=== PATIENT | female | born 1955 | race Caucasian/White ===

== ENCOUNTER → 2019-09-07 11:00 | Outpatient (BNVA) | payer MEDICARE, MEDICAID, SELFPAY | PROVIDERS: Family Provider Nurse Practitioner Family; Visit Provider Registered Nurse | DX: F33.1 Major depressive disorder, recurrent, moderate (principal); F43.12 Post-traumatic stress disorder, chronic; G47.30 Sleep apnea, unspecified; Z79.899 Other long term (current) drug therapy | CPT/HCPCS: 80061; 83036 ==

== ENCOUNTER → 2020-02-28 11:14 | Outpatient (BNVA) | payer MEDICARE, MEDICAID, SELFPAY ==
[2019-09-09 10:12] VITALS: BP 164/93; BMI 25.3
== END ==
PROVIDERS: Family Provider Nurse Practitioner Family; PCP Family Medicine; Visit Provider Family Medicine
DX: E87.6 Hypokalemia (principal); I10 Essential (primary) hypertension; I16.0 Hypertensive urgency; R41.3 Other amnesia; R56.1 Post traumatic seizures; Z79.899 Other long term (current) drug therapy
CPT/HCPCS: 80048; 80061; 83036

== ENCOUNTER 2020-03-11 15:21 | Emergency (ER) | payer MEDICARE, MEDICAID, SELFPAY ==
[2019-09-09 10:12] VITALS: BP 164/93; BMI 25.3
[2020-03-11 15:27] VITALS: BP 121/81; PULSE 87; RESP 14; TEMP 36.6; O2SAT 95; BMI 26.5
--- NOTE | 2020-03-11 15:39 | ED_ITS ---
HPI - Fall General: Chief Complaint: Fall Stated Complaint: FELL AND HIT HEAD Time Seen by Provider: 03/11/20 15:36 Source: patient Mode of arrival: ambulatory Limitations: no limitations History of Present Illness: HPI Narrative: Patient is a 65-year-old female who presents to ED today for evaluation of a head injury. Patient tells me earlier this morning she tripped over my own two feet and struck her head. No LOC. She states she has a headache. No visual changes, vomiting, or trouble walking. She has no other complaints at this time. Place fall occurred: home Loss of consciousness: None Prolonged down time: no Symptoms prior to fall: none Context: tripped/slipped Associated symptoms-after fall: Reports headache(s); Denies abdominal pain, chest pain, confusion or neck pain Review of Systems Const: Denies: fever(s) or chills Eyes: Denies: change in vision, blurry vision, photophobia, floaters or seeing flashes Card: Denies: chest pain Resp: Denies: dyspnea GI: Denies: abdominal pain, nausea or vomiting Musc: Denies: neck pain, back pain, extremity pain or joint pain Neuro: Reports: headache(s); Denies: numbness in extremities, weakness in extremities, sensory changes, dizziness or confusion PFSH ED PFSH: Medical History Apnea, sleep Chronic post-traumatic stress disorder GERD (gastroesophageal reflux disease) Hyperlipidemia Hypertension Hypokalemia Major depressive disorder, recurrent, moderate Osteoarthritis Family History Father Hypertension Social History Smoking and tobacco status: former smoker Second hand smoke exposure: No Alcohol intake: current Alcohol intake frequency: 3 or more drinks per day Desire information about alcohol rehabilitation?: No Current gender identity: Female Female Reproductive History: Spontaneous abortions: No Physical Exam Const: COMMON NORMALS: no acute distress, average body habitus, patient oriented x3, no limitations, healthy appearing, alert and well nourished ORIENTATION/CONSCIOUSNESS: Yes oriented to person, Yes oriented to place and Yes oriented to time HENMT: COMMON NORMALS: normocephalic and atraumatic HEAD & SCALP: normocephalic and atraumatic Eye: COMMON NORMALS: Equal, round and reactive pupils present and EOMs intact bilaterally GENERAL EYE: appearance normal, both eyes and all related structures PUPIL: Yes Equal, round and reactive pupils present Neck/C-Spine: COMMON NORMALS: full ROM CERVICAL SPINE: No Cervical spine tenderness Chest: COMMONS NORMALS: normal inspection of the chest and normal palpation of entire chest wall Resp: COMMON NORMALS: normal respiratory effort and clear to auscultation bilaterally AUSCULTATION: clear to auscultation bilaterally Cardio: COMMON NORMALS: regular rate and regular rhythm RATE: regular rate RHYTHM: regular rhythm Back/Pelvis: COMMON NORMALS: thoracic and lumbar spine normal to inspection, no thoracic nor lumbar tenderness and thoraco-lumbar ROM normal Neuro: MASON COMA SCALE: document GCS findings Mason coma scale eye opening: Spontaneous [place] coma scale verbal response: Orientated [place] coma scale motor response: Obey commands [place] coma scale total score: 15 COMMON NORMALS: patient oriented x3, CN's II-XII intact bilaterally, moves all extremities, no focal motor deficits, no sensory deficits noted and gait normal SENSORIUM/ORIENTATION: Yes alert, Yes oriented to person, Yes oriented to place and Yes oriented to time Skin: COMMON NORMALS: no rashes or lesions noted GENERAL SKIN EXAM: no rashes or lesions noted Course Vital Signs: Vital signs: Vital Signs Temperature 97.9 F 03/11/20 15:27 Pulse Rate 87 03/11/20 15:27 Respiratory Rate 14 03/11/20 15:27 Blood Pressure 121/81 03/11/20 15:27 Pulse Oximetry 95 03/11/20 15:27 MDM - Fall Imaging Data^: CT Head: Radiologist's impression: [address] [address] [address] Scan Report Signed Patient: Kaitlynn Harris Unit #: [id number] : 1955 Age/Sex: 65 / F ADM Date: 03/11/20 Loc: ER Room/Bed: Attending Dr: Ordering Provider/Ordering MD: Joyce Waite Date of Service: 03/11/20 Procedure(s): CT head wo con* [id number] Accession Number(s): [id number] Report Number: [id number] PROCEDURE INFORMATION: Exam: CT Head Without Contrast Exam date and time: 03/11/2020 3:58 PM Age: 65 years old Clinical indication: Injury or trauma; Blunt trauma (contusions or hematomas); Without loss of consciousness; Prior surgery; Surgery date: 1-6 months; Surgery type: Chi-mauro hole; Patient HX: C/O EDMONDS after fall while walking denies loc - states multiple recent falls; Additional info: Fall/head injury TECHNIQUE: Imaging protocol: Computed tomography of the head without contrast. Radiation optimization: All CT scans at this facility use at least one of these dose optimization techniques: automated exposure control; mA and/or kV adjustment per patient size (includes targeted exams where dose is matched to clinical indication); or iterative reconstruction. COMPARISON: No relevant prior studies available. 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 Mild atrophy and mild white matter chronic microvascular changes are noted. No hemorrhage or CT evidence of acute infarction is seen. Mild dural thickening is observed in the anterolateral left frontal convexity near an a mauro hole. Cerebral ventricles: No ventriculomegaly. Bones/joints: No acute fracture. Paranasal sinuses: Visualized sinuses are unremarkable. No fluid levels. Mastoid air cells: Visualized mastoid air cells are well aerated. Soft tissues: Unremarkable. CT/CT head wo con* [id number] IMPRESSION: No acute intracranial abnormality. Radiation Dose CTDIVOL = (mGy): DLP = 856.33 (mGy-cm) Dictated By: Fahad Carter MD Signed By: Fahad Carter MD Signed Date/Time: 03/11/201621 DD/ 21 Discharge Plan Discharge Patient Disposition: Home Clinical Impression: Fall on same level from tripping Minor head injury without loss of consciousness Qualifiers: Encounter type: initial encounter Qualified Code(s): S09.90XA - Unspecified injury of head, initial encounter Condition: Stable Prescriptions: No Action vitamin B complex [B Complex-Vitamin B12] Tablet 1 tab PO DAILY RF: 0 fenofibrate nanocrystallized 145 mg tablet 145 mg PO DAILY RF: 0 calcium carb-D3-mag [id number] [id number] lk-uckm-fa-mg tablet 1 tab PO DAILY RF: 0 naproxen 500 mg tablet 500 mg PO BID RF: 0 potassium chloride 10 mEq capsule, extended release 10 meq PO TID 30 Days Qty: 90 RF: 2 fluvoxamine 100 mg tablet 100 mg PO .at bedtime RF: 0 amlodipine 10 mg tablet 10 mg PO QAM 30 Days Qty: 30 RF: 2 desvenlafaxine succinate [Pristiq] 100 mg tablet extended release 24 hr 100 mg PO DAILY Qty: 7 RF: 0 hydrochlorothiazide 25 mg tablet 25 mg PO DAILY 7 Days Qty: 7 RF: 0 lamotrigine [Lamictal ODT] 200 mg tablet,disintegrating 200 mg PO DAILY Qty: 7 RF: 0 lovastatin 10 mg tablet 10 mg PO DAILY Qty: 7 RF: 0 olmesartan 40 mg tablet 40 mg PO DAILY 7 Days Qty: 7 RF: 0 omeprazole 20 mg capsule,delayed release(DR/EC) 20 mg PO DAILY Qty: 7 RF: 0 risperidone [Risperdal] 2 mg tablet 2 mg PO .bedtime Qty: 7 RF: 0 Discharge Orders: Discharge ED (Routine); Ordered 03/11/20 Ordered By: Joyce Waite Referrals: Evelyne Harper MD [Primary Care Provider] - Patient Instructions: Minor Head Injury (ED) Coding Level of Care Code ED General Practitioner for Chg Fwd Exam Comprehensive
== END 2020-03-11 16:36 | disposition home or self-care (01) ==
PROVIDERS: Emergency Provider Physician Assistant; PCP Family Medicine
DX: S09.8XXA Other specified injuries of head, initial encounter (principal); E78.5 Hyperlipidemia, unspecified; I10 Essential (primary) hypertension; Z87.891 Personal history of nicotine dependence; W01.10XA Fall on same level from slipping, tripping and stumbling with subsequent striking against unspecified object, initial encounter
CPT/HCPCS: 12345; 70450; 99281; 99282

== ENCOUNTER → 2020-08-22 11:24 | Outpatient (BNVA) | payer MEDICARE, MEDICAID, SELFPAY ==
[2019-09-09 10:12] VITALS: BP 164/93; BMI 25.3
== END ==
PROVIDERS: PCP Family Medicine; Visit Provider Family Medicine
DX: I10 Essential (primary) hypertension (principal); E78.2 Mixed hyperlipidemia; K21.9 Gastro-esophageal reflux disease without esophagitis; E87.6 Hypokalemia; N18.9 Chronic kidney disease, unspecified; L03.113 Cellulitis of right upper limb; N18.2 Chronic kidney disease, stage 2 (mild)
CPT/HCPCS: 80053

== ENCOUNTER → 2020-08-31 10:13 | Outpatient (BNVA) | payer MEDICARE, MEDICAID, SELFPAY ==
[2019-09-09 10:12] VITALS: BP 164/93; BMI 25.3
== END ==
PROVIDERS: PCP Family Medicine; Visit Provider Family Medicine
DX: S50.01XA Contusion of right elbow, initial encounter (principal); X58.XXXA Exposure to other specified factors, initial encounter; M79.89 Other specified soft tissue disorders
CPT/HCPCS: 73080

== ENCOUNTER → 2020-10-25 10:10 | Outpatient (BNVA) | payer MEDICARE, MEDICAID, SELFPAY ==
[2019-09-09 10:12] VITALS: BP 164/93; BMI 25.3
== END ==
PROVIDERS: PCP Family Medicine; Visit Provider Family Medicine
DX: E87.1 Hypo-osmolality and hyponatremia (principal); N18.2 Chronic kidney disease, stage 2 (mild); Z22.322 Carrier or suspected carrier of Methicillin resistant Staphylococcus aureus
CPT/HCPCS: 80048

== ENCOUNTER → 2020-11-30 16:19 | Outpatient (BNVA) | payer MEDICARE, MEDICAID, SELFPAY ==
[2019-09-09 10:12] VITALS: BP 164/93; BMI 25.3
== END ==
PROVIDERS: PCP Family Medicine; Visit Provider Emergency Medicine
DX: Z20.822 Contact with and (suspected) exposure to COVID-19 (principal)
CPT/HCPCS: 87635

== ENCOUNTER → 2021-02-28 10:11 | Outpatient (BNVA) | payer MEDICARE, MEDICAID, SELFPAY ==
[2019-09-09 10:12] VITALS: BP 164/93; BMI 25.3
== END ==
PROVIDERS: PCP Family Medicine; Visit Provider Registered Nurse
DX: Z79.899 Other long term (current) drug therapy; I12.9 Hypertensive chronic kidney disease with stage 1 through stage 4 chronic kidney disease, or unspecified chronic kidney disease; N18.2 Chronic kidney disease, stage 2 (mild); E87.6 Hypokalemia; M89.49 Other hypertrophic osteoarthropathy, multiple sites; F33.1 Major depressive disorder, recurrent, moderate; F43.12 Post-traumatic stress disorder, chronic; G47.30 Sleep apnea, unspecified
CPT/HCPCS: 80053; 80061; 82306; 82607; 83036; 84443

== ENCOUNTER → 2021-06-15 15:31 | Outpatient (BNVA) | payer MEDICARE, MEDICAID, SELFPAY ==
[2019-09-09 10:12] VITALS: BP 164/93; BMI 25.3
== END ==
PROVIDERS: PCP Family Medicine; Visit Provider Emergency Medicine
DX: R11.2 Nausea with vomiting, unspecified (principal); R42 Dizziness and giddiness
CPT/HCPCS: 82962

== ENCOUNTER 2021-07-04 11:24 | Inpatient (IN) | payer MEDICARE, MEDICAID, SELFPAY ==
[2019-09-09 10:12] VITALS: BP 164/93; BMI 25.3
--- NOTE | 2021-07-04 11:25 | ED_ITS ---
HPI - Dizziness General: Chief Complaint: Fall Stated Complaint: DIZZINESS/ VOMITING/ ORTHOSTATIC HYPOTENSION Time Seen by Provider: 07/04/21 11:25 Source: patient Mode of arrival: ambulatory Limitations: no limitations History of Present Illness: HPI Narrative: 66-year-old female found down in her home she gotten up got lightheaded dizzy and fell. Unknown length of downtime she had abrasion on her nose and was dizzy had some mild swelling on her forehead. She was in the [facility] emergency room yesterday for the same symptoms but left early because she thought the wait was too long. She states she is fallen multiple times recently. On arrival here she is oriented to person but not time or place. She states that she has not eaten in days and that she is starving reiterates this multiple times. She is confused and disoriented and on repeat examination have similar conversations multiple times. MD elicited complaint: dizziness Onset (ago): day(s) (4) Timing: gradual onset Severity: mild Description: sense of movement and lightheadedness Context: change in body position Exacerbating factors: movement/ambulation, change in body position and exertion Relieving factors: remaining still Associated symptoms: Denies change in hearing, chest pain, chills, cough, diaphoresis, ear discharge, ear pressure, fevers/chills, headache(s), malaise, nausea, nasal congestion, palpitations, rash, short of breath, syncope, tinnitus, vomiting or weakness Associated neuro symptoms: Deny confusion, difficulty speaking, dysphagia, diplopia, extremity weakness, facial numbness, facial weakness, gait changes, numbness in extremities or visual changes Review of Systems Const: Denies: fever(s), chills, malaise or diaphoresis ENMT: Denies: ear discharge, change in hearing, tinnitus or nasal congestion Card: Denies: chest pain, palpitations or syncope Resp: Denies: dyspnea, productive cough or non-productive cough GI: Denies: nausea, vomiting or dysphagia : Denies: flank pain, difficulty voiding, dysuria, urinary frequency or urinary urgency Skin/Breast: Denies: rash or pruritus Neuro: Denies: headache(s), numbness in extremities or confusion PFS ED PFSH: Medical History Apnea, sleep Chronic post-traumatic stress disorder CKD (chronic kidney disease) GERD (gastroesophageal reflux disease) Hyperlipidemia Hypertension Hypokalemia Major depressive disorder, recurrent, moderate Osteoarthritis Psychiatric care Family History Father Hypertension Social History Smoking and tobacco status: former smoker Second hand smoke exposure: No Alcohol intake: current Alcohol intake frequency: 3 or more drinks per day Desire information about alcohol rehabilitation?: No Current gender identity: Female Female Reproductive History: Spontaneous abortions: No Physical Exam Const: COMMON NORMALS: no acute distress GENERAL APPEARANCE: cooperative and comfortable ORIENTATION/CONSCIOUSNESS: Yes awake HENMT: COMMON NORMALS: normocephalic, atraumatic, hearing grossly normal bilaterally, external ears normal, EAC's normal, TM's normal bilaterally, Normal nasal mucous membranes and turbinates present, moist oral mucous membranes and oropharynx normal HEAD & SCALP: normocephalic and atraumatic NOSE: Normal nasal mucous membranes and turbinates present EXTERNAL EAR: Yes external ears normal EXTERNAL AUDITORY CANAL: EAC's normal TYMPANIC MEMBRANE: TM's normal bilaterally Eye: COMMON NORMALS: Equal, round and reactive pupils present, EOMs intact bilaterally, conjunctivae normal and no scleral icterus CONJUNCTIVA: Yes conjunctivae normal PUPIL: Yes Equal, round and reactive pupils present Neck/C-Spine: COMMON NORMALS: full ROM, no lymphadenopathy, supple and no JVD Resp: COMMON NORMALS: normal respiratory effort, No retractions, No use of accessory muscles and clear to auscultation bilaterally AUSCULTATION: clear to auscultation bilaterally Cardio: COMMON NORMALS: no JVD, regular rate, regular rhythm and No murmurs present (Cardio) RATE: regular rate RHYTHM: regular rhythm GI: COMMON NORMALS: Soft to palpation and No hepatosplenomegaly present AUSCULTATION: Yes normoactive bowel sounds PALPATION: Yes Soft to palpation, No Tenderness to palpation present (GI), No Guarding due to palpation present (GI) and Yes No hepatosplenomegaly present Extremity: COMMON NORMALS: normal to inspection, capillary refill normal, no clubbing, cyanosis or edema, no calf tenderness and no pedal edema Skin: COMMON NORMALS: no rashes or lesions noted GENERAL SKIN EXAM: no rashes or lesions noted Course Vital Signs: Vital signs: Vital Signs Temperature 98.2 F 07/04/21 11:28 Pulse Rate 100 07/04/21 14:36 Respiratory Rate 26 H 07/04/21 14:36 Blood Pressure 97/52 07/04/21 14:36 Pulse Oximetry 100 07/04/21 14:36 MDM - Dizziness Medical Decision Making Patient hyponatremic and hypokalemic. She is disoriented confused with frequent falls I believe she does have symptomatic hyponatremia. Will admit discussed Dr. Ireland orders written. Medical Records I reviewed the patient's medical records. Lab Data I reviewed the patient's lab results. : 07/04/21 12:05 07/04/21 12:[address] 07/04/21 11:34 IMPRESSION: 1. Soft tissue tissue edema overlying the nasal bones and anterior facial soft tissues. No displaced nasal bone fractures. Slight irregularity distal nasal tip. 2. No orbital fractures. 3. Paranasal sinuses and mastoid air cells are well aerated. Head CT 07/04/21 11:34 IMPRESSION: 1. No evidence of intracranial hemorrhage or mass effect. 2. Moderate small vessel changes. Mild parenchymal volume loss. 3. Chronic encephalomalacia RIGHT parietal lobe. 4. Chronic LEFT frontal mauro hole. 5. No acute intracranial findings. Chest X-Ray 07/04/21 12:06 Impression: 1. Moderate to small right pleural effusion with patchy atelectasis in the right lower lobe. 2. Mild cardiomegaly. Laboratory Results WBC Cancelled 07/04/21 12:05 Corrected WBC Cancelled 07/04/21 12:05 RBC Cancelled 07/04/21 12:05 Hgb Cancelled 07/04/21 12:05 Hct Cancelled 07/04/21 12:05 MCV Cancelled 07/04/21 12:05 MCH Cancelled 07/04/21 12:05 MCHC Cancelled 07/04/21 12:05 RDW Cancelled 07/04/21 12:05 Plt Count Cancelled 07/04/21 12:05 MPV Cancelled 07/04/21 12:05 Gran % Cancelled 07/04/21 12:05 Neut % (Auto) Cancelled 07/04/21 12:05 Lymph % (Auto) Cancelled 07/04/21 12:05 [place] % (Auto) Cancelled 07/04/21 12:05 Eos % (Auto) Cancelled 07/04/21 12:05 Baso % (Auto) Cancelled 07/04/21 12:05 Neut # (Auto) Cancelled 07/04/21 12:05 Lymph # (Auto) Cancelled 07/04/21 12:05 [place] # (Auto) Cancelled 07/04/21 12:05 Eos # (Auto) Cancelled 07/04/21 12:05 Baso # (Auto) Cancelled 07/04/21 12:05 Absolute Gran (auto) Cancelled 07/04/21 12:05 Nucleated RBC % (auto) Cancelled 07/04/21 12:05 Nucleated RBCs # Cancelled 07/04/21 12:05 Specimen Type Arterial 07/04/21 12:17 Sample Site Radial, left 07/04/21 12:17 ABG pH 7.48 (7.35-7.45) H 07/04/21 12:17 ABG pCO2 34.7 mmHg (35-45) L 07/04/21 12:17 ABG pO2 75.3 mmHg (80.0-100.0) L 07/04/21 12:17 ABG HCO3 26.1 mmol/L (22-26) H 07/04/21 12:17 ABG O2 Saturation 94.8 07/04/21 12:17 ABG Base Excess 2.9 mmol/L (-2.0-2.0) H 07/04/21 12:17 Cory Test Pos 07/04/21 12:17 A-a O2 Gradient 3.9 mmHg (5-10) L 07/04/21 12:17 Hematocrit 39.1 % (37-47) 07/04/21 12:17 Hgb O2 Saturation 93.6 % (95-100) L 07/04/21 12:17 Carboxyhemoglobin 0.5 %THgb (0.4-20.1) 07/04/21 12:17 Methemoglobin 0.8 % (0.4-1.5) 07/04/21 12:17 Total Hemoglobin 12.8 g/dL (12-16) 07/04/21 12:17 Sodium 126.0 mmol/L (131-143) L 07/04/21 12:17 Potassium 3.1 mmol/L (3.5-5.0) L 07/04/21 12:17 Glucose 102.0 mg/dL (70-115) 07/04/21 12:17 Ionized Calcium 1.2 mmol/L (1.1-1.4) 07/04/21 12:17 O2 Delivery Device Room air 07/04/21 12:17 FiO2 21.0 % 07/04/21 12:17 B2B Outside Sales Representative ID Cak 07/04/21 12:17 Sodium 124 mmol/L (136-145) L 07/04/21 12:05 Potassium 3.1 mmol/L (3.5-5.1) L 07/04/21 12:05 Chloride 83 mmol/L (98-107) L 07/04/21 12:05 Carbon Dioxide 24 mmol/L (22-29) 07/04/21 12:05 Anion Gap 20.1 (5-19) H 07/04/21 12:05 BUN 24 mg/dL (8-23) H 07/04/21 12:05 Creatinine 1.1 mg/dL (0.5-0.9) H 07/04/21 12:05 GFR Calculation 50.0 mL/min (90-130) L 07/04/21 12:05 Glucose 99 mg/dL (65-115) 07/04/21 12:05 Calculated Osmolality 262 mOsm/kg (285-295) L 07/04/21 12:05 Calcium 8.8 mg/dL (8.5-10.5) 07/04/21 12:05 Total Bilirubin 1.0 mg/dL (0.15-1.2) 07/04/21 12:05 AST 74 U/L (0-32) H 07/04/21 12:05 ALT 46 U/L (0-33) H 07/04/21 12:05 Alkaline Phosphatase 43 IU/L (35-105) 07/04/21 12:05 Ammonia 10 umol/L (11-51) L 07/04/21 12:50 Troponin T Baseline 43 ng/L (0-10) H 07/04/21 12:05 Total Protein 5.7 g/dL (6.6-8.7) L 07/04/21 12:05 Albumin 3.9 g/dL (3.5-5.2) 07/04/21 12:05 Globulin 1.8 g/dL (1.3-4.6) 07/04/21 12:05 Discharge Plan Discharge Patient Disposition: Placed in Observation Admit Provider: Americo Ireland Clinical Impression: Hyponatremia, Hypokalemia, Encephalopathy Condition: Stable Coding Level of Care Code ED Safety Attendant for Kimg Fwd NIH stroke score NIHSS Level Of Consciousness - 1a: 0 Level Of Consciousness Questions - 1b: Both Correct Level Of Consciousness Commands - 1c: Both Correct Best Gaze - 2: Normal Visual Muir - 3: No Visual Loss Facial Palsy - 4: Normal Motor Arm Right - 5: No Drift Motor Arm Left - 5: No Drift Motor Leg Right - 6: No Drift Motor Leg Left - 6: No Drift Limb Ataxia - 7: Absent Sensory - 8: Normal Best Language - 9: No Aphasia Dysarthia - 10: Normal Extinction And Inattention - 11: 0 Score Total Score: 0
--- NOTE | 2021-07-04 11:26 | ECG_ITS ---
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 Measurements Intervals [place] Rate: 68 P: 60 WV: 186 QRS: -11 QRSD: 100 T: -1 QT: 447 QTc: 478 Interpretive Statements SINUS RHYTHM INCOMPLETE RIGHT BUNDLE BRANCH BLOCK [90+ ms QRS DURATION, TERMINAL R IN V1/V2, 40+ ms S IN I/aVL/V4/V5/V6] MODERATE ST DEPRESSION [0.05+ mV ST DEPRESSION] No previous ECG available for comparison Electronically Signed On 07-04-2021 20:20:00 CDT by Mery Almonte M.D. [id number]
[2021-07-04 11:28] VITALS: BP 110/65; PULSE 79; RESP 16; TEMP 36.8; O2SAT 96; BMI 28.3
--- NOTE | 2021-07-04 11:34 | CT_ITS ---
WS: [id number] CT FACIAL BONES TECHNIQUE: Noncontrast facial bones with coronal and sagittal reformatted images. CLINICAL INFORMATION: fall COMPARISON: None. DLP: 734.[address] scans at [facility] use at least one of these dose optimization techniques: automated e xposure control; mA and/or kV adjustment per patient size (includes targeted exams where dose is matc hed to clinical indication); or iterative reconstruction. FINDINGS: Soft tissue edema overlying the facial soft tissues and nasal bones. No displaced nasal fractures. Mi ld nasal septal deviation likely chronic. Slight irregularity distal nasal tuft. .Both orbits are normal in appearance. Normal lateral orbits. Normal lamina papyracea. Normal pterygo id plates. No evidence of mandibular fracture or dislocation. Paranasal sinuses are well aerated. No fluid in the paranasal sinuses. Normal posterior nasopharynx. Mastoid air cells well aerated. CT/CT facial bones wo con* [id number] IMPRESSION: 1. Soft tissue tissue edema overlying the nasal bones and anterior facial soft tissues. No displaced nasal bone fractures. Slight irregularity distal nasal t ip. 2. No orbital fractures. 3. Paranasal sinuses and mastoid air cells are well aerated.
--- NOTE | 2021-07-04 11:34 | CT_ITS ---
WS: [id number] CT HEAD TECHNIQUE: Noncontrast CT of the head obtained from the skullbase to the vertex. CLINICAL INFORMATION: fall COMPARISON: CT March 11, 2020 DLP: 769.[address] scans at [facility] use at least one of these dose optimization techniques: automated e xposure control; mA and/or kV adjustment per patient size (includes targeted exams where dose is matc hed to clinical indication); or iterative reconstruction. FINDINGS: No evidence of intracranial hemorrhage or mass effect. Ventricular system and basal cisterns are joshua nt. Moderate small vessel changes with mild parenchymal volume loss. Chronic encephalomalacia RIGHT p arietal lobe. No extra-axial fluid collections. No evidence of mass or mass effect. Paranasal sinuses and mastoid air cells are well aerated. .Normal visualized soft tissues. CT/CT head wo con* [id number] IMPRESSION: 1. No evidence of intracranial hemorrhage or mass effect. 2. Moderate small vessel changes. Mild parenchymal volume loss. 3. Chronic encephalomalacia RIGHT parietal lobe. 4. Chronic LEFT frontal mauro hole. 5. No acute intracranial findings.
[2021-07-04] MEDS: sodium chloride 0.9% 500 ML 999 ML IV (12:00)
--- NOTE | 2021-07-04 12:06 | XR_ITS ---
WS: [id number] Portable AP upright chest, 07/04/2021 Clinical Data: dyspnea/cough Comparison: None. Findings: No nodules or masses are seen. The heart is slightly enlarged. There is a small right pleur al effusion with probable patchy atelectasis overlying. There is a small tube overlying the right manav phragm. The pulmonary vascularity is not increased. No pneumonia or pneumothorax is seen. There are h ealed rib fractures from the right third through eighth ribs in the posterior lateral aspect. Monitor leads are on the chest wall. XR/XR chest 1V portable [id number] Impression: 1. Moderate to small right pleural effusion with patchy atelectasis in the righ t lower lobe. 2. Mild cardiomegaly.
[2021-07-04 12:28] LABS: ABG PCO2 34.7 mmHg (35-45); ABG PH Result 7.48 (7.35-7.45); Alveolar-Arterial Oxygen Gradi 3.9 mmHg (5-10); Arterial Blood Gas Hematocrit 39.1 % (37-47); Base Excess ABG 2.9 mmol/L (-2.0-2.0); Blood Gas Allen Test Pos; Blood Gas Operator Identificat CAK; Blood Gas Sample Site Radial, left; Blood Gas Sample Type Arterial; Carboxyhemoglobin 0.5 %THgb (0.4-20.1); HCO3 ABG 26.1 mmol/L (22-26); HGB O2 Sat 93.6 % (95-100); Ionized Calcium Level - ABG 1.2 mmol/L (1.1-1.4); Methemoglobin 0.8 % (0.4-1.5); Oxygen Device ROOM AIR; Oxygen Saturation ABG 94.8; PO2 ABG 75.3 mmHg (80.0-100.0); Potassium Level - ABG 3.1 mmol/L (3.5-5.0); Total Hemoglobin 12.8 g/dL (12-16)
--- NOTE | 2021-07-04 12:30 | PC.NURSE ---
Patient had to urinate, patient could not wait, bed bergeron provided. Dr. Nava states he wants straight cath for urine sample. He states wait a little for cath.
[2021-07-04 12:39] LABS: Troponin(5th) Baseline 43 ng/L (0-10)
[2021-07-04 12:41] LABS: Alanine Aminotransferase 46 U/L (0-33); Albumin Level 3.9 g/dL (3.5-5.2); Alkaline Phosphatase 43 IU/L (35-105); Anion Gap 20.1 (5-19); Aspartate Amino Transferase 74 U/L (0-32); Blood Urea Nitrogen 24 mg/dL (8-23); Calcium 8.8 mg/dL (8.5-10.5); Carbon Dioxide 24 mmol/L (22-29); Chloride 83 mmol/L (98-107); Globulin 1.8 g/dL (1.3-4.6); Glucose 99 mg/dL (65-115); Osmolality Calculated 262 mOsm/kg (285-295); Potassium 3.1 mmol/L (3.5-5.1); Sodium 124 mmol/L (136-145); Total Protein 5.7 g/dL (6.6-8.7)
[2021-07-04 12:44] VITALS: BP 100/67; PULSE 68; RESP 14; O2SAT 98
[2021-07-04 12:48] LABS: Creatinine Clr Calc Pharmacy 49.3228
[2021-07-04 13:11] LABS: Ammonia 10 umol/L (11-51)
[2021-07-04 13:13] VITALS: BP 116/76; PULSE 69; RESP 16; O2SAT 97
--- NOTE | 2021-07-04 13:17 | PC.PHAR ---
pt states she hasnt had medications in months pt also states she doesnt know what month it is-[facility] the [facility]ts [facility] to her-medications entered are meds that [facility] has [facility] and ext med history-notes are made in the pharmacy comments
--- NOTE | 2021-07-04 13:39 | ECG_ITS ---
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 Measurements Intervals [place] Rate: 82 P: 52 [place]: 188 QRS: -18 QRSD: 109 T: 2 QT: 410 QTc: 480 Interpretive Statements SINUS RHYTHM INCOMPLETE RIGHT BUNDLE BRANCH BLOCK [90+ ms QRS DURATION, TERMINAL R IN V1/V2, 40+ ms S IN I/aVL/V4/V5/V6] NONSPECIFIC T-WAVE ABNORMALITY Compared to ECG 07/04/2021 11:37:56 T-wave abnormality now present Right ventricular hypertrophy no longer present ST (T wave) deviation no longer present Electronically Signed On 07-04-2021 20:27:15 CDT by Mery Almonte M.D. [id number]
[2021-07-04 14:36] VITALS: BP 97/52; PULSE 100; RESP 26; O2SAT 100
[2021-07-04] MEDS: sodium chloride 0.9% 1,000 ML 100 ML IV (15:34)
[2021-07-04 15:38] LABS: Basophils % 0.2 %; Hemoglobin 13.4 g/dL (11.5-15.3); Lymphocytes # 0.5 10^3/uL (0.8-4.8); Lymphocytes % 7.1 %; Mean Corpuscular HGB Conc 37.2 g/dL (30.0-36.0); Mean Corpuscular Hemoglobin 34.4 pg (28.0-34.0); Mean Corpuscular Volume 92.3 fl (81-99); Mean Platelet Volume 9.4 fL (7.4-10.4); Monocytes # 0.5 10^3/uL (0.2-0.9); Monocytes % 7.6 %; Neutrophils # 5.49 10^3/uL (1.8-7.7); Neutrophils % 84.6 %; Nucleated Red Blood Cells % 0 %; Platelet Count 168 10^3/cmm (130-400); Red Cell Distribution Width 11.3 % (12.1-15.1); White Blood Count 6.5 10^3/uL (4.0-10.0)
[2021-07-04 15:48] LABS: Slide Review Slide Review Perform
[2021-07-04 16:26] LABS: Add Urine Microscopic? NO; Charge for UA Resulting for Rev
[2021-07-04 16:30] LABS: Blood Urine Neg (Negative); Glucose Urine UA Norm (Normal); Ketones Urine 1+ (Negative); Nitrate Urine Negative (Negative); Protein Urine Neg (Negative); Specific Gravity, Urine 1.005 (1.005-1.030); Urine Appearance Clear (CLEAR); Urine Color Yellow (Yellow); pH Urine 7 (5-7)
[2021-07-04 16:31] LABS: Bilirubin Urine Neg (Negative); Leukocyte Esterase Urine Negative (Negative); Urobilinogen Urine Norm (Negative)
[2021-07-04] MEDS: piperacillin-tazobactam 3.375 GM in sodium chloride 0.9% (plus) 50 ML IV (17:08)
[2021-07-04] MEDS: ferrous gluconate 324 mg Tablet PO (17:09)
--- NOTE | 2021-07-04 17:34 | P.HP_ITS ---
Providers/Chief Complaint Admitting Physician: Americo Ireland MD Primary Care Provider: Evelyne Harper MD Chief Complaint: DIZZINESS/ VOMITING/ ORTHOSTATIC HYPOTENSION History of Present Illness Kaitlynn Harris is a 66 year old female with past medical history of hypertension, hyperlipidemia, chronic alcoholism. As per the patient she consumes around 1 to 1-1/2 gallon of Se[place]rams whiskey every other day since a long time. The patient she presents to the ER today because of having recurrent falls for last 2 days. She states he was at [facility] for similar complaints yesterday but as could not be seen for 5 hours for left home. She states prior to this she has been having recurrent episodes of nausea and vomiting for last 1 week because of which she has not been able to keep anything down. States this happened to her previously as well but does not remember the reason for the same. Denies any other complaints. Denies any headache, palpitation, chest pain, dysuria, constipation. States last he took medicine was many months ago. States she continues to forget to take her medicines. States she has been getting more more forgetful over the last couple of months. Review of Systems General: Reports: 10 or more systems reviewed and unremarkable except in HPI a nd below Const: Denies: fever(s), chills, body aches, change in appetite, change in weight, malaise, night sweats, diaphoresis, change in sleep pattern, daytime sleepiness or snoring Eyes: Denies: change in vision, blurry vision, photophobia, eye discomfort or eye discharge ENMT: Denies: throat pain, enlarged tonsils, hoarseness, mouth pain, oral sores, dry mouth, tinnitus, nasal congestion or post nasal drip Card: Denies: chest pain, palpitations, irregular heart rhythm, edema, swelling of feet/ankles, lightheadedness, syncope, pre-syncope, dyspnea on exertion, orthopnea, leg pain with exertion or acrocyanosis Resp: Denies: dyspnea, productive cough, non-productive cough, wheezing, stridor, pain on inspiration, change in phlegm color, hemoptysis or chest congestion GI: Denies: abdominal pain, nausea, vomiting, hematemesis, coffee ground emesis, dysphagia, heartburn, diarrhea, constipation, bloating, GI cramping, change in bowel habits, pain on defecation, hematochezia or melena : Denies: flank pain, dysuria, urinary frequency, urinary urgency, urinary hesitancy, nocturia or hematuria Musc: Denies: neck pain, back pain, extremity pain, joint pain, joint swelling, joint redness, joint stiffness or limited range of motion Neuro: Denies: headache(s), numbness in extremities, weakness in extremities, sensory changes, lack of coordination, difficulty walking, frequent falls, dizziness, vertigo, confusion, Slurred speech present, difficulty communicating thoughts or seizure-like activity Psych: Denies: anxiety, depression, mood swings, panic attacks, hopelessness or irritability Endo: Denies: polyuria, polydipsia, tired all the time, cold intolerance, excessive sweating, flushing or heat intolerance Rene/Lymph: Denies: easy bruising or easy bleeding All/Imm: Denies: tongue swelling, facial swelling or acute wheezing Medications/Allergies Home Medications Medication Instructions Recorded Confirmed Last Taken Type lovastatin 10 mg tablet 10 mg PO DAILY 90 Days #90 tab 03/01/21 07/04/21 Unknown Rx naproxen 500 mg tablet 500 mg PO DAILY PRN 30 Days #30 tab 03/01/21 07/04/21 Unknown Rx ondansetron 4 mg disintegrating 4 mg PO Q6H PRN #12 tab 06/15/21 07/04/21 Unknown Rx tablet omeprazole 20 mg capsule,delayed 20 mg PO DAILY 90 Days #90 cap 06/26/21 07/04/21 Unknown Rx release albuterol sulfate 90 mcg/actuation 2 puff INHALATION Q6H PRN 07/04/21 07/04/21 Unknown History aerosol inhaler (Ventolin HFA) amlodipine 10 mg tablet 10 mg PO QAM 07/04/21 07/04/21 Unknown History fenofibrate nanocrystallized 145 145 mg PO DAILY 07/04/21 07/04/21 Unknown History mg tablet fluvoxamine 100 mg tablet 100 mg PO BEDTIME 07/04/21 07/04/21 Unknown History hydrochlorothiazide 25 mg tablet 25 mg PO QAM 07/04/21 07/04/21 Unknown History olmesartan 40 mg tablet 40 mg PO BEDTIME 07/04/21 07/04/21 Unknown History potassium chloride 10 mEq 10 meq PO TID 07/04/21 07/04/21 Unknown History capsule,extended release risperidone 2 mg tablet 2 mg PO BEDTIME 07/04/21 07/04/21 Unknown History Allergies Allergy/AdvReac Type Severity Reaction Status Date / Time clindamycin Allergy Intermediate vomiting Verified 07/04/21 11:28 morphine AdvReac Intermediate physcotic Verified 07/04/21 11:28 episodes PFSH Acute PFSH: Medical History (Updated 07/04/21 @ 17:47 by Americo Ireland MD) Alcohol abuse Apnea, sleep Chronic post-traumatic stress disorder CKD (chronic kidney disease) Closed traumatic brain injury GERD (gastroesophageal reflux disease) Hyperlipidemia Hypertension Hypokalemia Major depressive disorder, recurrent, moderate Osteoarthritis Psychiatric care Vitamin D deficiency Family History Father Hypertension Social History Smoking and tobacco status: former smoker Second hand smoke exposure: No Alcohol intake: current Alcohol intake frequency: 3 or more drinks per day Desire information about alcohol rehabilitation?: No Current gender identity: Female Female Reproductive History: Spontaneous abortions: No Vitals/I&O/Wt Last Vital Signs Temp 98.2 F 07/04/21 11:28 Pulse 100 07/04/21 14:36 Resp 26 H 07/04/21 14:36 BP 97/52 07/04/21 14:36 Pulse Ox 100 07/04/21 14:36 07/04/21 07/04/21 07/04/21 06:59 14:59 22:59 Intake Total 500 / 500 240 / 740 Balance 500 / 500 240 / 740 Weight last 48 hrs Weight 72.575 kg Physical Exam Narrative: General: No acute distress, AO x3, small abrasion present at the bridge of the nose, not open wound HEENT: PERRLA, pupils bilaterally equal and reactive Chest: Normal vesicular breath sounds, no added sounds, equal good air entry bilaterally CVS: S1-S2 regular, no murmurs, no tachycardia, no gallops, no rubs Abdomen: Soft, nontender, no organomegaly, bowel sounds present Neuro: No focal deficits, no facial deformity, AO x3, power 5/5 in all limbs Data : 07/04/21 14:23 05/18/22 12:05 A&P Assessment and plan (1) Nausea & vomiting: Status: Acute (2) Encephalopathy: Status: Acute (3) Alcohol abuse: Status: Acute (4) Hyponatremia: Status: Acute (5) Hypokalemia: Status: Acute (6) Hypertension: Status: Acute Qualifiers: Hypertension type: essential hypertension Qualified Code(s): I10 - Essential (primary) hypertension (7) Prediabetes: Status: Acute (8) Frequent falls: Status: Acute Plan 56-year-old female with past history of chronic alcohol abuse presented to the ER today because of multiple episodes of vomiting for last 1 week and falls for last 2 days. Nausea, vomiting: Most likely secondary to chronic alcohol abuse. History of GERD. Zofran as needed, Protonix daily. Check lipase. Check CT abdomen pelvis. Liver transaminases mildly elevated most likely secondary to chronic alcohol abuse but not significant. Bilirubin within normal limit. Encephalopathy: Ammonia levels within normal limit, CT head negative for stroke. Can be secondary to hyponatremia and hypokalemia in setting of chronic alcohol abuse. Cannot rule out Wernicke's encephalopathy. Frequent reorientation. For hyponatremia start patient on normal saline at 100 cc/h. Check BMP every 12 hourly. Replace potassium with 120 mEq oral potassium. If does not improve will check MRI brain to rule out Warnicke's encephalopathy. Chronic alcoholism: Banana bag. Folic acid, thiamine. CIWA protocol Ativan. Hypertension: Goal blood pressure less than 140/90 mmHg. Supposed to take amlodipine 10 mg, hydrochlorothiazide, losartan at home. As per patient not taking medicine for last 3 months. Blood pressure borderline currently. Hold off on any antihypertensives. Frequent falls: PT/OT. Orthostatic check. Full code. Protonix OPD prophylaxis. Lovenox for DVT prophylaxis. Mechanical soft regular diet. Patient would like her daughter Lizet to make medical decisions for her in case she is not able to make her medical decisions herself. Attestations Medical Necessity Statement*: Requires admission for more than 2 midnights for management and evaluation of hyponatremia, hypokalemia leading to recurrent falls in a patient with chronic alcoholism. Time Spent in Patient Care: Greater than 35 minutes Coding Level of Care Code Acute Corporate Development Associate for [facility] Diagnoses Hyponatremia E87.1 Hypokalemia E87.6 Encephalopathy G93.40 Hypertension I10 Hypertension type: essential hypertension Prediabetes R73.03 Alcohol abuse F10.10 Nausea & vomiting R11.2 Frequent falls R29.6
--- NOTE | 2021-07-04 17:37 | CTR_ITS ---
PROCEDURE INFORMATION: Exam: CT Chest Without Contrast; Diagnostic Exam date and time: 07/04/2021 8:46 PM Age: 66 years old Clinical indication: Nausea and vomiting; Shortness of breath; Additional info: Pna, n, v, hyponatremia TECHNIQUE: Imaging protocol: Diagnostic computed tomography of the chest without contrast. Radiation optimization: All CT scans at this facility use at least one of these dose optimization techniques: automated exposure control; mA and/or kV adjustment per patient size (includes targeted exams where dose is matched to clinical indication); or iterative reconstruction. COMPARISON: CR XR chest 1V portable [id number] 07/04/2021 12:10 PM RADIATION DOSE METRICS: Total DLP (mGy-cm): 1128.11 FINDINGS: Lungs: Emphysematous changes. Scattered interstitial fibrotic changes right greater than left. Pleural spaces: Benign right pleural plaque overlying the diaphragm. Heart: Unremarkable. No cardiomegaly. No pericardial effusion. Lymph nodes: Unremarkable. No enlarged lymph nodes. Vasculature: Ascending thoracic aorta is prominent at 4.1 cm, negative for rupture. Bones/joints: Midthoracic spine chronic benign hemangioma. Several chronic right posterior rib fractures. Soft tissues: Unremarkable. PROCEDURE INFORMATION: Exam: CT Abdomen And Pelvis Without Contrast Exam date and time: 07/04/2021 8:46 PM Age: 66 years old Clinical indication: Nausea and vomiting; Shortness of breath; Additional info: Pna, n, v, hyponatremia TECHNIQUE: Imaging protocol: Computed tomography of the abdomen and pelvis without contrast. Radiation optimization: All CT scans at this facility use at least one of these dose optimization techniques: automated exposure control; mA and/or kV adjustment per patient size (includes targeted exams where dose is matched to clinical indication); or iterative reconstruction. COMPARISON: CR XR chest 1V portable [id number] 07/04/2021 12:10 PM RADIATION DOSE METRICS: Total DLP (mGy-cm): 1128.11 FINDINGS: Liver: Normal. No mass. Gallbladder and bile ducts: Cholelithiasis. Pancreas: Solid and cystic 3.9 cm pancreatic head mass suspected, MRI of the pancreas advised non emergently. Spleen: Normal. No splenomegaly. Adrenal glands: Normal. No mass. Kidneys and ureters: Normal. No hydronephrosis. Stomach and bowel: Unremarkable. No obstruction. No mucosal thickening. Appendix: No evidence of appendicitis. Intraperitoneal space: Unremarkable. No free air. No significant fluid collection. Vasculature: Unremarkable. No abdominal aortic aneurysm. Lymph nodes: Unremarkable. No enlarged lymph nodes. Urinary bladder: Unremarkable as visualized. Reproductive: Unremarkable as visualized. Bones/joints: Right hip arthroplasty changes. Soft tissues: Left abdominal wall minimal subcutaneous emphysema, likely from an injection. CT/CT chest abd pel wo con IMPRESSION: 1. Ascending thoracic aorta is prominent at 4.1 cm, negative for rupture. 2. Emphysematous changes. 3. Scattered interstitial fibrotic changes right greater than left. 4. Midthoracic spine chronic benign hemangioma. 5. Several chronic right posterior rib fractures. 6. Benign right pleural plaque overlying the diaphragm. IMPRESSION: 1. Negative for acute inflammatory changes in the abdomen or pelvis. 2. Cholelithiasis. 3. Solid and cystic 3.9 cm pancreatic head mass suspected, MRI of the pancreas advised non emergently. 4. Right hip arthroplasty changes.
--- NOTE | 2021-07-04 17:39 | ECG_ITS ---
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 Measurements Intervals [place] Rate: 93 P: 42 TX: 188 QRS: -15 QRSD: 104 T: 13 QT: 384 QTc: 480 Interpretive Statements SINUS RHYTHM INCOMPLETE RIGHT BUNDLE BRANCH BLOCK POSSIBLE ANTERIOR MYOCARDIAL INFARCTION , PROBABLY OLD Compared to ECG 07/04/2021 13:43:34 Right ventricular hypertrophy now present Myocardial infarct finding now present T-wave abnormality no longer present Electronically Signed On 07-04-2021 20:24:50 CDT by Mery Almonte M.D. [id number]
[2021-07-04 18:01] LABS: Amphetamines Screen Urine Negative (Negative); Barbiturates Screen Urine Negative (Negative); Benzodiazepines Screen Urine Negative (Negative); Cocaine Screen Urine Negative (Negative); Opiate Screen Urine Negative (Negative); PCP Screen Urine Negative (Negative); THC Screen Urine Negative (Negative)
[2021-07-04 18:08] LABS: Potassium, Radom Urine 17 mmol/L; Urine Random Chloride 12 mmol/L; Urine Random Sodium < 10 mmol/L
[2021-07-04 18:11] LABS: Folate Level 11.7 ng/mL (4.8-37.3)
[2021-07-04 18:12] LABS: Alcohol Level 161 mg/dL (0-10); Iron 79 ug/dL (37-145); Lipase 15 U/L (13-60); NT Pro B Type Natriuretic Pept 2838 pg/mL (0-125); Total Iron Binding Capacity 272 mcg/dl; Unsaturated Iron Binding 193 ug/dL (112-347); Vitamin B12 1241 pg/mL (232-1245)
[2021-07-04 18:14] LABS: Acetaminophen < 5.0 ug/mL (10-30); Salicylate < 0.3 mg/dL (3-10)
[2021-07-04] MEDS: enoxaparin 40 mg/0.4 mL Syringe SUBCUT (18:22)
[2021-07-04] MEDS: pantoprazole 40 mg SDV IVP (18:23)
[2021-07-04] MEDS: docusate sodium 100 mg Capsule PO (18:23)
[2021-07-04 18:52] VITALS: BP 122/79; PULSE 90; RESP 18; TEMP 36.6; O2SAT 96
--- NOTE | 2021-07-04 19:20 | PC.NURSE ---
Patient AAOx4, VSS, OOBTC and restroom with standby assist. Arrived to floor via cart and no c/o pain or discomfort. Wanting something to eat and sugary foods. TOlerated well, room clean and clutter free with call light in reach. No new events or needs at this time. Report given bedside to oncoming nurse.
[2021-07-04 20:09] VITALS: BP 130/78; PULSE 89; RESP 16; TEMP 36.4; O2SAT 95
[2021-07-04] MEDS: acetaminophen 325 mg Tablet 650 MG PO (20:11)
[2021-07-04 20:12] LABS: Troponin 5 6HR 48.96 ng/L (0-10)
[2021-07-04 20:24] LABS: Troponin 5 6HR Delta 5.96 ng/L (0-12)
[2021-07-04] MEDS: folic acid 1 MG, multivitamin inj 10 ML, thiamine 100 MG in sodium chloride 0.9% 1,000 ML 252.8 MG IV (20:58)
[2021-07-04] MEDS: risperiDONE 2 mg Tablet PO (21:00)
[2021-07-04] MEDS: potassium chloride ER 10 mEq Tablet PO (21:00)
[2021-07-04 21:42] LABS: Anion Gap 18.9 (5-19); Blood Urea Nitrogen 22 mg/dL (8-23); Calcium 8.7 mg/dL (8.5-10.5); Carbon Dioxide 22 mmol/L (22-29); Chloride 82 mmol/L (98-107); Glomerular Filtration Rate 45.2 mL/min (90-130); Glucose 201 mg/dL (65-115); Osmolality Calculated 259 mOsm/kg (285-295); Sodium 120 mmol/L (136-145)
[2021-07-04 21:55] LABS: Creatinine Clr Calc Pharmacy 45.2125; Potassium 2.9 mmol/L (3.5-5.1)
[2021-07-04] MEDS: potassium chloride ER 20 mEq Tablet 40 MEQ PO ×2 (22:09→23:06)
[2021-07-05] VITALS (11 sets, daily range): BP systolic 115–152; BP diastolic 75–107; PULSE 52–116; RESP 12–20; TEMP 36.6–36.8; O2SAT 95–97
[2021-07-05] MEDS: sodium chloride 0.9% 1,000 ML 100 ML IV (01:53)
[2021-07-05] MEDS: piperacillin-tazobactam 3.375 GM in sodium chloride 0.9% (plus) 50 ML IV ×3 (01:54→18:26)
[2021-07-05] MEDS: ondansetron 2 mg/ML SDV 2 mL 4 MG IVP ×2 (02:21→09:47)
[2021-07-05 05:14] LABS: Basophils % 0.2 %; Eosinophils % 0.4 %; Hematocrit 32.7 % (37.0-47.0); Hemoglobin 11.9 g/dL (11.5-15.3); Lymphocytes # 0.5 10^3/uL (0.8-4.8); Lymphocytes % 8.7 %; Mean Corpuscular HGB Conc 36.4 g/dL (30.0-36.0); Mean Corpuscular Hemoglobin 34.7 pg (28.0-34.0); Mean Corpuscular Volume 95.3 fl (81-99); Mean Platelet Volume 9.9 fL (7.4-10.4); Monocytes # 0.4 10^3/uL (0.2-0.9); Monocytes % 8.2 %; Neutrophils # 4.31 10^3/uL (1.8-7.7); Neutrophils % 81.7 %; Nucleated Red Blood Cells % 0 %; Platelet Count 131 10^3/cmm (130-400); Red Blood Count 3.43 10^6/uL (4.1-5.3); Red Cell Distribution Width 11.3 % (12.1-15.1); White Blood Count 5.3 10^3/uL (4.0-10.0)
[2021-07-05 05:44] LABS: Alanine Aminotransferase 40 U/L (0-33); Albumin Level 3.6 g/dL (3.5-5.2); Alkaline Phosphatase 54 IU/L (35-105); Anion Gap 15.9 (5-19); Aspartate Amino Transferase 50 U/L (0-32); Blood Urea Nitrogen 19 mg/dL (8-23); Calcium 8.3 mg/dL (8.5-10.5); Carbon Dioxide 21 mmol/L (22-29); Chloride 84 mmol/L (98-107); Chol HDL Ratio 1.77 mg/dL (0.0-4.40); Cholesterol 133 mg/dL (0-200); Globulin 1.7 g/dL (1.3-4.6); Glucose 123 mg/dL (65-115); HDL Cholesterol 75 mg/dL (60-100); LDL Cholesterol Calculated 38 mg/dL (50-129); Osmolality Calculated 248 mOsm/kg (285-295); Potassium 3.9 mmol/L (3.5-5.1); Total Bilirubin 1.1 mg/dL (0.15-1.2); Total Protein 5.3 g/dL (6.6-8.7); Triglycerides 102 mg/dL (0-150); VLDL Cholestrol Calculation 20 mg/dL (0-30)
[2021-07-05 05:49] LABS: Estmated Average Glucose 131; Hemoglobin A1C 6.2 % (4.0-6.0)
[2021-07-05 05:50] LABS: Creatinine Clr Calc Pharmacy 49.3228
[2021-07-05 05:51] LABS: Sodium 117 mmol/L (136-145)
--- NOTE | 2021-07-05 09:30 | MR_ITS ---
WS: [id number] MRI HEAD WITHOUT CONTRAST TECHNIQUE: Sagittal T1, T2 axial, T2 axial FLAIR, axial and coronal T1 images, axial susceptibility w eighted imaging, axial diffusion weighted images, and coronal T2 images were obtained. CLINICAL INFORMATION: Possible Warnicke's COMPARISON: None. FINDINGS: No evidence of restricted diffusion to suggest acute ischemia. Ventricular system and basal cisterns are patent. Moderate small vessel changes with moderate parenchymal volume loss. Evidence of prior infarcts in th e RIGHT frontoparietal white matter with encephalomalacia and gliosis. Moderate to advanced symmetric atrophy temporal lobes and hippocampal formations. Normal posterior fossa. Normal vascular flow void s at the skull base. Proximal 7th and 8th cranial nerves are normal. No extra-axial fluid collections . No evidence of intracranial mass or mass effect. No hemosiderin on susceptibly weighted images. Normal optic chiasm and pituitary infundibulum. Tiny c hronic lacunar infarcts in the periventricular white matter RIGHT greater than LEFT gonzalez radiata. Moderate atrophy involving the cerebellum worse in the superior cerebellar vermis. Small amount of T2 hyperintensity involving the mamillary bodies. Marked atrophy of the mamillary bodies. Above finding s can be seen with Wernickes encephalopathy and chronic alcoholic encephalopathy. No evidence of acut e osmotic demyelination. Mild atrophy of the midbrain. Chronic thinning of the corpus callosum. Medi an thalamus and periaqueductal george appear normal. MR/MR head wo con* [id number] IMPRESSION: 1. No evidence of restricted diffusion to suggest acute ischemia. 2. Moderate small vessel changes with moderate parenchymal volume loss. 3. Evidence of chronic infarcts in the RIGHT frontal parietal junction with en cephalomalacia and gliosis. 4. Moderate cerebellar atrophy worse involving the superior vermis. Atrophic m ammillary bodies with a Small amount of increased T2 hyperintensity. Above find ings can be seen with Wernickes and chronic alcoholic encephalopathy. 5. No evidence of acute osmotic demyelination. 6. Moderate to advanced symmetric atrophy temporal lobes and hippocampal forma tions.
[2021-07-05] MEDS: fenofibrate 145 mg Tablet PO (09:32)
[2021-07-05] MEDS: atorvastatin 40 mg Tablet 20 MG PO (09:33)
[2021-07-05] MEDS: folic acid 1 mg Tablet PO (09:33)
[2021-07-05] MEDS: multivitamin therapeutic Tablet 1 TAB PO (09:33)
[2021-07-05] MEDS: docusate sodium 100 mg Capsule PO ×2 (09:33→17:22)
[2021-07-05] MEDS: thiamine 100 mg Tablet PO (09:33)
[2021-07-05] MEDS: ferrous gluconate 324 mg Tablet PO ×2 (09:33→17:22)
[2021-07-05] MEDS: potassium chloride ER 10 mEq Tablet PO ×2 (09:33→20:40)
[2021-07-05] MEDS: FUROsemide 10 mg/mL SDV 2mL 20 MG IVP (09:44)
[2021-07-05] MEDS: LORazepam 2 mg/mL INJ 1 mL IM (09:45)
[2021-07-05] MEDS: chlordiazePOXIDE 25 mg Capsule PO ×3 (10:09→20:40)
--- NOTE | 2021-07-05 10:40 | PC.CHAP ---
Pastoral Care Encounter/Spiritual Assessment Type of Contact [] Declined fire prevention specialist visit [] Patient/Family/Request visit [] Outpatient visit [] Follow-up visit [] Physician referral [] Code/Alert [x] Routine visit [] Staff referral [] Actively dying [] Patient sleeping [] Family support [] [] Out of room [] Palliative care [] [x] Receiving care in room [] Pre-surgical visit [] Trauma [] Long length of stay [] ICU visit [] Other: Relational/Emotional Strength [x] Patient feels connected with others/family/visitors/staff [] Distress [] Loneliness/isolation [] Abandonment Spirituality of Patient [x] Person of [place] [] Attends Holiness of their [place] [x] Believes in Prayer [] Reads Bible or Uatsdin materials [] There are Spiritual issues to be addressed Vp [employer] Interventions [x] Prayer [x] Active listening [x] Non-anxious presence [x] Spiritual/emotional support [] Crisis/trauma care [x] Spiritual counseling [] Bereavement support [] Provided bereavement packet [] Provided Bible/devotional materials [] Provided toy/stuffed animal, coloring book to patient or family member [] Provided Communion [] Anointing/[place] [] Salvation [x] Completed spiritual assessment [] Other: Impact on Illness or Injury [] Angry [] Fearful [] Anxious [] Often cries [] Exhaustion [] Unable to work [] Unable to attend sikhism [] Unable to walk/stand [] Unable to read [] Unable to drive [] Unable to eat/drink [] Unable to sleep [] Unable to be with family [] Patient intubated [] Other: Summary vomiting floods waiting on tests and doctors report has a good attitude well go home soon Time spent with patient 10 mins
[2021-07-05] MEDS: LORazepam 2 mg/mL INJ 1 mL 1 MG IVP ×3 (13:14→19:40)
--- NOTE | 2021-07-05 14:02 | PM.PN ---
Subjective Subjective: Seen multiple times during the day. Overnight as per the nurse patient has been getting more and more confused. Has not received any dose of Ativan overnight. During morning on examination patient is sitting comfortably in bed, complaining of mild nausea but no vomiting, headache, feeling jittery. She states she is going into alcohol withdrawal. States she is feeling weak. Because of worsening hyponatremia fluid was stopped and patient was given 20 mg of IV Lasix. On repeat BMP in the evening it was found to be overly corrected and D5 half NS was started. During the day patient started getting more more confused. Requiring multiple doses of IV and IM Ativan. Patient also lost an IV. Patient was found to be getting out of bed at multiple times. Overall patient received 5 mg of Ativan. Vitals/I&O/Wt Last Vital Signs Temp 98.2 F 07/05/21 07:27 Pulse 84 07/05/21 11:33 Resp 18 07/05/21 11:33 BP 145/81 07/05/21 11:33 Pulse Ox 95 07/05/21 11:33 07/04/21 07/05/21 07/05/21 22:59 06:59 14:59 Intake Total 410 / 910 3161.2 / 4071.2 923.333 / 923.333 Output Total 351 / 351 600 / 600 Balance 410 / 910 2810.2 / 3720.2 323.333 / 323.333 Weight last 48 hrs Weight 70.4 kg Weight 72.575 kg Physical Exam Narrative: General: No acute distress, AO x3, small abrasion present at the bridge of the nose, not open wound. CIWA: 9 HEENT: PERRLA, pupils bilaterally equal and reactive Chest: Normal vesicular breath sounds, no added sounds, equal good air entry bilaterally CVS: S1-S2 regular, no murmurs, no tachycardia, no gallops, no rubs Abdomen: Soft, nontender, no organomegaly, bowel sounds present Neuro: No focal deficits, no facial deformity, AO x3, power 5/5 in all limbs Data : 07/05/21 04:21 07/05/21 15:53 Micro: Microbiology 07/04/21 13:45 Legionella Urinary Antigen - Final Unknown Source A&P Assessment and plan (1) Wernicke encephalopathy: Status: Acute (2) Alcohol withdrawal: Status: Acute (3) Alcohol abuse: Status: Acute (4) Hyponatremia: Status: Acute (5) Hypokalemia: Status: Acute (6) Hypertension: Status: Acute Qualifiers: Hypertension type: essential hypertension Qualified Code(s): I10 - Essential (primary) hypertension (7) Prediabetes: Status: Acute (8) Frequent falls: Status: Acute (9) Nausea & vomiting: Status: Acute Plan 56-year-old female with past history of chronic alcohol abuse presented to the ER today because of multiple episodes of vomiting for last 1 week and falls for last 2 days. Nausea, vomiting: Resolving. Most likely secondary to chronic alcohol abuse. History of GERD. Zofran as needed, Protonix daily. Lipase level within normal limits. CT abdomen pelvis negative for acute pancreatitis or acute pathology but consistent with pancreatic head mass which is most likely consistent with pancreatic cyst though malignancy cannot be ruled out. Will need nonemergent follow-up MRI. Liver transaminases mildly elevated most likely secondary to chronic alcohol abuse but not significant. Bilirubin within normal limit. Wernicke's encephalopathy: MR head consistent with Wernicke's encephalopathy. Most likely worsening with hyponatremia in combination of for whole withdrawal. Ammonia levels within normal limit, CT head negative for stroke. For hyponatremia: Overnight has been worsening. Down to 117. Baseline seems to be 1 31-1 33. Appreciate urine lites studies. Sodium levels less than 10. For concern for hypervolemic hyponatremia in setting of chronic alcohol abuse. IV fluids. Give 20 mg of IV Lasix. Fluid restriction up to 1500 cc. Target improvement of around 10 units the next 24 hours. If overcorrected will start on D5 half NS at 50 cc/h. Check BMP every 12 hours. Replace potassium Alcohol withdrawal: Ativan as per CIWA protocol. Start patient on Librium 25 mg every 6 hourly as needed. Because of worsening mentation will switch patient to Precedex drip and stop Ativan. Moved to CSU. Chronic alcoholism: Oral folic acid and thiamine. CIWA protocol Hypertension: Goal blood pressure less than 140/90 mmHg. Supposed to take amlodipine 10 mg, hydrochlorothiazide, losartan at home. As per patient not taking medicine for last 3 months. Blood pressure borderline currently. Hold off on any antihypertensives. Frequent falls: PT/OT. Orthostatic check. Full code. Protonix OPD prophylaxis. Lovenox for DVT prophylaxis. Mechanical soft regular diet. Patient would like her daughter Lizet to make medical decisions for her in case she is not able to make her medical decisions herself. Attestations Medical Necessity Statement*: Patient requires further hospitalization for management of Wernicke's encephalopathy, worsening hyponatremia, alcohol withdrawal leading to delirium Time Spent in Patient Care: Greater than 35 minutes Coding Level of Care Code Acute Billet Bed Operator for g Fwd Diagnoses Nausea & vomiting R11.2 Alcohol abuse F10.10 Hyponatremia E87.1 Hypokalemia E87.6 Hypertension I10 Hypertension type: essential hypertension Prediabetes R73.03 Frequent falls R29.6 Wernicke encephalopathy E51.2 Alcohol withdrawal F10.239
[2021-07-05] MEDS: LORazepam 2 mg Tablet PO (14:19)
[2021-07-05] MEDS: potassium chloride ER 20 mEq Tablet 40 MEQ PO (14:22)
[2021-07-05] MEDS: haloperidol inj 5 mg/mL INJ 1 mL 2 MG IM (14:45)
[2021-07-05 16:18] LABS: Anion Gap 14.7 (5-19); Blood Urea Nitrogen 14 mg/dL (8-23); Calcium 9.4 mg/dL (8.5-10.5); Carbon Dioxide 26 mmol/L (22-29); Chloride 92 mmol/L (98-107); Glomerular Filtration Rate 45.2 mL/min (90-130); Glucose 137 mg/dL (65-115); Osmolality Calculated 271 mOsm/kg (285-295); Potassium 3.7 mmol/L (3.5-5.1); Sodium 129 mmol/L (136-145)
[2021-07-05] MEDS: dextrose 5%-sod chloride 0.45% 1,000 ML 50 ML IV (17:21)
[2021-07-05] MEDS: pantoprazole 40 mg SDV IVP (17:22)
[2021-07-05] MEDS: enoxaparin 40 mg/0.4 mL Syringe SUBCUT (17:22)
--- NOTE | 2021-07-05 17:34 | PC.NURSE ---
Patient oriented to self only, withdrawals increasing throughout shift, up voiding to BSC every 5-10 minutes, bed alarm on and patient unsteady on feet. Impulsive and difficult to redirect. Pulled out IV difficult replacement, new orders placed by physician to move to higher level of care. Report called to Tuyet TESFAYE, caught up on patients latest meds that physician just ordered except for zosyn and sent that down with patient.
[2021-07-05] MEDS: dexmedeTOMIDine 0.9 % NaCL 400 MCG/100 ML PREMIX IV (18:48)
--- NOTE | 2021-07-05 20:32 | PC.NURSE ---
Addendum entered by Dolores Trevino RN 07/05/21 21:44: error at max rate Original Note: Dr. Crawford notified of patient being quick to try to get out of bed on her own, impulsive, confused, bed alarm going off frequently, and on CIWA. Precedex running at max rate. Patient just given dose of PRN Ativan. 1:1 sitter ordered.
[2021-07-05] MEDS: risperiDONE 2 mg Tablet PO (20:40)
--- NOTE | 2021-07-05 20:52 | PC.NURSE ---
Patient pulled IV out prior to sitter being at bedside. Catheter was intact. Sitter now at bedside. New IV started to right forearm.
--- NOTE | 2021-07-05 21:41 | PC.NURSE ---
Patient's heart rate changed from 100 at beginning of shift to 60 currently. Precedex drip titrated down (see mar). Will be titrated down more as tolerated/needed. Patient is finally resting in bed with eyes closed. Patient placed on 2 liters nasal cannula due to oxygen saturation of 87 percent.
[2021-07-06] VITALS (16 sets, daily range): BP systolic 128–177; BP diastolic 88–121; PULSE 57–117; RESP 12–34; TEMP 36–36.8; O2SAT 93–99
--- NOTE | 2021-07-06 01:26 | PC.NURSE ---
Patient's heart rate 48. Patient resting in bed with eyes closed. Precedex drip titrated off.
[2021-07-06] MEDS: piperacillin-tazobactam 3.375 GM in sodium chloride 0.9% (plus) 50 ML IV ×2 (01:30→08:31)
[2021-07-06] MEDS: chlordiazePOXIDE 25 mg Capsule PO ×4 (02:01→21:37)
[2021-07-06 05:12] LABS: Basophils % 1.5 %; Eosinophils # 0.1 10^3/uL (0.0-0.8); Eosinophils % 5.3 %; Hematocrit 34.1 % (37.0-47.0); Lymphocytes # 0.4 10^3/uL (0.8-4.8); Lymphocytes % 14.3 %; Mean Corpuscular HGB Conc 35.2 g/dL (30.0-36.0); Mean Corpuscular Hemoglobin 33.7 pg (28.0-34.0); Mean Corpuscular Volume 95.8 fl (81-99); Mean Platelet Volume 10.1 fL (7.4-10.4); Monocytes # 0.3 10^3/uL (0.2-0.9); Monocytes % 10.2 %; Neutrophils # 1.81 10^3/uL (1.8-7.7); Neutrophils % 67.9 %; Nucleated Red Blood Cells % 0 %; Platelet Count 141 10^3/cmm (130-400); Red Blood Count 3.56 10^6/uL (4.1-5.3); Red Cell Distribution Width 11.7 % (12.1-15.1); White Blood Count 2.7 10^3/uL (4.0-10.0)
[2021-07-06 06:18] LABS: Alanine Aminotransferase 36 U/L (0-33); Alkaline Phosphatase 44 IU/L (35-105); Aspartate Amino Transferase 35 U/L (0-32); Blood Urea Nitrogen 12 mg/dL (8-23); Calcium 9.1 mg/dL (8.5-10.5); Carbon Dioxide 25 mmol/L (22-29); Chloride 98 mmol/L (98-107); Globulin 1.3 g/dL (1.3-4.6); Glomerular Filtration Rate 55.8 mL/min (90-130); Glucose 127 mg/dL (65-115); Osmolality Calculated 283 mOsm/kg (285-295); Sodium 136 mmol/L (136-145); Total Bilirubin 0.9 mg/dL (0.15-1.2); Total Protein 5.3 g/dL (6.6-8.7)
[2021-07-06 06:20] LABS: Anion Gap 17.1 (5-19); Potassium 4.1 mmol/L (3.5-5.1)
[2021-07-06] MEDS: atorvastatin 40 mg Tablet 20 MG PO (08:30)
[2021-07-06] MEDS: potassium chloride ER 10 mEq Tablet PO ×3 (08:30→21:37)
[2021-07-06] MEDS: folic acid 1 mg Tablet PO (08:30)
[2021-07-06] MEDS: ferrous gluconate 324 mg Tablet PO ×2 (08:30→19:56)
[2021-07-06] MEDS: multivitamin therapeutic Tablet 1 TAB PO (08:30)
[2021-07-06] MEDS: fenofibrate 145 mg Tablet PO (08:30)
[2021-07-06] MEDS: dextrose 5% 1,000 ML 75 ML IV (08:31)
[2021-07-06] MEDS: thiamine 100 mg Tablet PO (08:31)
--- NOTE | 2021-07-06 11:46 | PC.NURSE ---
report given to marcy in icu. pts daughter and son at bedside, will follow to icu. Dr. Ireland recently at bedside, aware of pts loc. no new orders. all belonging with patient including her glasses and necklace.
--- NOTE | 2021-07-06 12:19 | PM.PN ---
Subjective Subjective: Yesterday evening patient was transferred to [facility]SU for Precedex drip. Overall since yesterday evening patient required 2 mg of IV Ativan, Precedex drip which was stopped later at around 2 AM because of bradycardia. Today morning on examination patient was having GIII episodes, nausea, headache with a CIWA of 9 with a heart rate of 92 at which Precedex was restarted at 0.2. Otherwise has dynamically stable and afebrile. Vitals/I&O/Wt Last Vital Signs Temp 98 F 07/06/21 08:00 Pulse 103 H 07/06/21 08:00 Resp 19 H 07/06/21 08:00 BP 148/89 07/06/21 08:00 Pulse Ox 93 07/06/21 08:00 07/05/21 07/06/21 07/06/21 22:59 06:59 14:59 Intake Total 360.417 / 1283.750 74.581 / 3207.611 5631 / 1000 Output Total 1000 / 1600 Balance -639.583 / -316.250 74.581 / -839.637 9703 / 1000 Weight last 48 hrs Weight 68.855 kg Weight 70.4 kg Physical Exam Narrative: General: No acute distress, alert oriented to self, place, confused, small abrasion present at the bridge of the nose, not open wound. CIWA: 9 HEENT: PERRLA, pupils bilaterally equal and reactive Chest: Normal vesicular breath sounds, no added sounds, equal good air entry bilaterally CVS: S1-S2 regular, no murmurs, no tachycardia, no gallops, no rubs Abdomen: Soft, nontender, no organomegaly, bowel sounds present Neuro: No focal deficits, no facial deformity, AO x3, power 5/5 in all limbs Data : 07/06/21 04:37 07/06/21 05:46 A&P Assessment and plan (1) Wernicke encephalopathy: Status: Acute (2) Alcohol withdrawal: Status: Acute (3) Alcohol abuse: Status: Acute (4) Hyponatremia: Status: Acute (5) Hypokalemia: Status: Acute (6) Hypertension: Status: Acute Qualifiers: Hypertension type: essential hypertension Qualified Code(s): I10 - Essential (primary) hypertension (7) Prediabetes: Status: Acute (8) Frequent falls: Status: Acute (9) Nausea & vomiting: Status: Acute Plan 56-year-old female with past history of chronic alcohol abuse presented to the ER today because of multiple episodes of vomiting for last 1 week and falls for last 2 days. Nausea, vomiting: Resolving. Most likely secondary to chronic alcohol abuse. History of GERD. Zofran as needed, Protonix daily. Lipase level within normal limits. CT abdomen pelvis negative for acute pancreatitis or acute pathology but consistent with pancreatic head mass which is most likely consistent with pancreatic cyst though malignancy cannot be ruled out. Will need nonemergent follow-up MRI. Liver transaminases mildly elevated most likely secondary to chronic alcohol abuse but not significant. Bilirubin within normal limit. Wernicke's encephalopathy: MR head consistent with Wernicke's encephalopathy. Most likely worsening with hyponatremia in combination of for whole withdrawal. Ammonia levels within normal limit, CT head negative for stroke. For hyponatremia: Resolved, have corrected. Hypervolemic hyponatremia in setting of chronic alcohol abuse. Concerns for overcorrection. Switch to D5W at 75 cc/h. Check BMP every 12 hours. Alcohol withdrawal: Ativan 1 mg every 2 hours as needed. For now continue with Librium 25 mg every 6 hour. We will start weaning from tomorrow. Precedex drip. Monitor heart rate. Chronic alcoholism: Oral folic acid and thiamine. [facility] protocol Hypertension: Goal blood pressure less than 140/90 mmHg. Supposed to take amlodipine 10 mg, hydrochlorothiazide, losartan at home. As per patient not taking medicine for last 3 months. Blood pressure borderline currently. Hold off on any antihypertensives. Frequent falls: PT/OT. Orthostatic check. Full code. Protonix OPD prophylaxis. Lovenox for DVT prophylaxis. Mechanical soft regular diet. Patient would like her daughter Lizet to make medical decisions for her in case she is not able to make her medical decisions herself. Discharge planning: Home health versus SNF. None patient is patient was denying SNF placement. Will await formal PT evaluation once patient is able to participate better to make a formal decision. Attestations Medical Necessity Statement*: Requires further hopitalisation for alcohol withdrawl, wernicke's encephalopathy Time Spent in Patient Care: Greater than 35 minutes Coding Level of Care Code Acute Child Adolescent Psychiatrist for [facility] Diagnoses Wernicke encephalopathy E51.2 Alcohol withdrawal F10.239 Alcohol abuse F10.10 Hyponatremia E87.1 Hypokalemia E87.6 Hypertension I10 Hypertension type: essential hypertension Prediabetes R73.03 Frequent falls R29.6 Nausea & vomiting R11.2
--- NOTE | 2021-07-06 13:20 | PC.NURSE ---
From [facility] Pt brought from C[facility] by Wheelchair. Pt transferred from wheelchair to bed with 2 assist. Pt is tired but able to answer name and birthday. Pt's son and daughter are present but not staying. Pt is still 1:1 with sitter at bedside.
[2021-07-06 16:36] LABS: Anion Gap 14.2 (5-19); Blood Urea Nitrogen 12 mg/dL (8-23); Calcium 9.4 mg/dL (8.5-10.5); Carbon Dioxide 26 mmol/L (22-29); Chloride 96 mmol/L (98-107); Glomerular Filtration Rate 55.8 mL/min (90-130); Glucose 150 mg/dL (65-115); Osmolality Calculated 277 mOsm/kg (285-295); Potassium 4.2 mmol/L (3.5-5.1); Sodium 132 mmol/L (136-145)
[2021-07-06] MEDS: pantoprazole 40 mg SDV IVP (19:55)
[2021-07-06] MEDS: docusate sodium 100 mg Capsule PO (19:55)
[2021-07-06] MEDS: enoxaparin 40 mg/0.4 mL Syringe SUBCUT (19:55)
--- NOTE | 2021-07-06 20:04 | PC.NURSE ---
Shift change Bedside given to Adelina TESFAYE. Pt is on precedex at 0.1. Pt is awake and talking on her cell phone. Pt is in good condition.
[2021-07-06] MEDS: risperiDONE 2 mg Tablet PO (21:37)
[2021-07-06] MEDS: LORazepam 2 mg/mL INJ 1 mL 1 MG IVP (21:51)
[2021-07-07] VITALS (12 sets, daily range): BP systolic 107–224; BP diastolic 70–150; PULSE 83–114; RESP 13–20; TEMP 36.3–36.8; O2SAT 94–100
[2021-07-07] MEDS: acetaminophen 325 mg Tablet 650 MG PO ×2 (00:16→20:44)
--- NOTE | 2021-07-07 00:38 | PC.NURSE ---
Blood Pressure Patient's blood pressure running 150s-170s systolic, 90s-110s diastolic. Dr. Crawford notified, no new orders received. To monitor BP.
--- NOTE | 2021-07-07 01:21 | PC.NURSE ---
Transfer Patient transferred to [facility] room 270 via bed. All belongings with patient at bedside, receiving nurse aware and in room with patient at time of move.
[2021-07-07] MEDS: dextrose 5% 1,000 ML 75 ML IV (02:46)
[2021-07-07] MEDS: chlordiazePOXIDE 25 mg Capsule PO ×3 (02:46→17:04)
--- NOTE | 2021-07-07 04:50 | PC.NURSE ---
Patient refusing AM lab draws.
--- NOTE | 2021-07-07 05:35 | PC.NUTR ---
ate 2 jello, and 2 packets of crackers as a snack after her diet was changed in middle of the night
[2021-07-07] MEDS: folic acid 1 mg Tablet PO (08:30)
[2021-07-07] MEDS: docusate sodium 100 mg Capsule PO ×2 (08:30→17:04)
[2021-07-07] MEDS: multivitamin therapeutic Tablet 1 TAB PO (08:30)
[2021-07-07] MEDS: thiamine 100 mg Tablet PO (08:30)
[2021-07-07] MEDS: atorvastatin 40 mg Tablet 20 MG PO (08:30)
[2021-07-07] MEDS: fenofibrate 145 mg Tablet PO (08:31)
[2021-07-07] MEDS: ferrous gluconate 324 mg Tablet PO ×2 (08:31→17:03)
[2021-07-07] MEDS: potassium chloride ER 10 mEq Tablet PO ×3 (08:31→20:44)
[2021-07-07 08:53] LABS: Basophils % 1.1 %; Eosinophils # 0.2 10^3/uL (0.0-0.8); Eosinophils % 4.5 %; Hematocrit 36.1 % (37.0-47.0); Hemoglobin 12.2 g/dL (11.5-15.3); Lymphocytes # 0.5 10^3/uL (0.8-4.8); Lymphocytes % 14.8 %; Mean Corpuscular HGB Conc 33.8 g/dL (30.0-36.0); Mean Corpuscular Hemoglobin 33.8 pg (28.0-34.0); Mean Platelet Volume 9.4 fL (7.4-10.4); Monocytes # 0.4 10^3/uL (0.2-0.9); Monocytes % 10.9 %; Neutrophils # 2.42 10^3/uL (1.8-7.7); Neutrophils % 67.9 %; Nucleated Red Blood Cells % 0 %; Platelet Count 146 10^3/cmm (130-400); Red Blood Count 3.61 10^6/uL (4.1-5.3); Red Cell Distribution Width 11.8 % (12.1-15.1); White Blood Count 3.6 10^3/uL (4.0-10.0)
[2021-07-07 09:08] LABS: Alanine Aminotransferase 36 U/L (0-33); Albumin Level 3.9 g/dL (3.5-5.2); Alkaline Phosphatase 54 IU/L (35-105); Anion Gap 15.3 (5-19); Aspartate Amino Transferase 31 U/L (0-32); Blood Urea Nitrogen 11 mg/dL (8-23); Calcium 9.6 mg/dL (8.5-10.5); Carbon Dioxide 23 mmol/L (22-29); Chloride 97 mmol/L (98-107); Globulin 1.7 g/dL (1.3-4.6); Glomerular Filtration Rate 55.8 mL/min (90-130); Glucose 167 mg/dL (65-115); Osmolality Calculated 275 mOsm/kg (285-295); Potassium 4.3 mmol/L (3.5-5.1); Sodium 131 mmol/L (136-145); Total Bilirubin 0.7 mg/dL (0.15-1.2); Total Protein 5.6 g/dL (6.6-8.7)
[2021-07-07] MEDS: losartan 50 mg Tablet PO (10:40)
--- NOTE | 2021-07-07 12:18 | PC.SOCIAL ---
IMM update IMM updated with patient. Verbalized an understanding. Copy Pg 2 provided. Initialled, dated, timed, and placed in chart.
--- NOTE | 2021-07-07 12:44 | P.PN_ITS ---
Subjective Subjective: Overnight patient was transferred out of ICU to [facility] floor. Precedex has been stopped. Today morning on examination patient is awake alert, still jittery, having nausea and headache. Denies of having any hallucinations. Overall last 24 hours has received 1 mg of IV Ativan. Vitals/I&O/Wt Last Vital Signs Temp 97.8 F 07/07/21 11:28 Pulse 99 07/07/21 11:28 Resp 14 07/07/21 11:28 BP 180/121 07/07/21 11:28 Pulse Ox 97 07/07/21 11:28 07/06/21 07/07/21 07/07/21 22:59 06:59 14:59 Intake Total 1541.733 / 2555.813 871.189 / 3427.002 220 / 220 Output Total 900 / 900 1725 / 2625 200 / 200 Balance 641.733 / 1655.813 -853.811 / 802.002 Weight last 48 hrs Weight 67.358 kg Weight 66.996 kg Weight 68.855 kg Physical Exam Narrative: General: No acute distress, alert oriented to self, place, confused, small abrasion present at the bridge of the nose, not open wound. C IWA: 4-5 HEENT: PERRLA, pupils bilaterally equal and reactive Chest: Normal vesicular breath sounds, no added sounds, equal good air entry bilaterally CVS: S1-S2 regular, no murmurs, no tachycardia, no gallops, no rubs Abdomen: Soft, nontender, no organomegaly, bowel sounds present Neuro: No focal deficits, no facial deformity, AO x3, power 5/5 in all limbs Data : 07/07/21 08:13 07/07/21 08:13 A&P Assessment and plan (1) Wernicke encephalopathy: Status: Acute (2) Alcohol withdrawal: Status: Acute (3) Alcohol abuse: Status: Acute (4) Hyponatremia: Status: Acute (5) Hypokalemia: Status: Acute (6) Hypertension: Status: Acute Qualifiers: Hypertension type: essential hypertension Qualified Code(s): I10 - Essential (primary) hypertension (7) Prediabetes: Status: Acute (8) Frequent falls: Status: Acute (9) Nausea & vomiting: Status: Acute Plan 56-year-old female with past history of chronic alcohol abuse presented to the ER today because of multiple episodes of vomiting for last 1 week and falls for last 2 days. Wernicke's encephalopathy: MR head consistent with Wernicke's encephalopathy. Most likely worsening with hyponatremia in combination of for whole withdrawal. Ammonia levels within normal limit, CT head negative for stroke. Hyponatremia: Resolved, Hypervolemic hyponatremia in setting of chronic alcohol abuse. Stop IVF. Check BMP every 12 hours. Alcohol withdrawal: Ativan 1 mg every 2 hours as needed. Wean Librium to 25 mg every 8 hour. Precedex drip. Monitor heart rate. Chronic alcoholism: Oral folic acid and thiamine. [facility] protocol Hypertension: Goal blood pressure less than 140/90 mmHg. Blood pressure is elevated today. Start on losartan 25 mg daily. Will uptitrate accordingly. Supposed to take amlodipine 10 mg, hydrochlorothiazide, losartan at home. As per patient not taking medicine for last 3 months. Blood pressure borderline currently. Hold off on any antihypertensives. Nausea, vomiting: Resolved. Most likely secondary to chronic alcohol abuse. History of GERD. Zofran as needed, Protonix daily. Lipase level within normal limits. CT abdomen pelvis negative for acute pancreatitis or acute pathology but consistent with pancreatic head mass which is most likely consistent with pancreatic cyst though malignancy cannot be ruled out. Will need nonemergent follow-up MRI. Liver transaminases mildly elevated most likely secondary to chronic alcohol abuse but not significant. Bilirubin within normal limit. Frequent falls: PT/OT. Orthostatic check negative Full code. Protonix OPD prophylaxis. Lovenox for DVT prophylaxis. Mechanical soft regular diet. Patient would like her daughter Lizet to make medical decisions for her in ca se she is not able to make her medical decisions herself. Discharge planning: Home health versus SNF. None patient is patient was denying SNF placement. Will await formal PT evaluation once patient is able to participate better to make a formal decision. Attestations Medical Necessity Statement*: Requested hospitalization for management of alcohol withdrawal in setting of Wernicke's encephalopathy, resolving hyponatremia in setting of chronic alcoholism. Time Spent in Patient Care: Greater than 35 minutes Coding Level of Care Code Acute Partner Manager for [facility] Diagnoses Wernicke encephalopathy E51.2 Alcohol withdrawal F10.239 Alcohol abuse F10.10 Hyponatremia E87.1 Hypokalemia E87.6 Hypertension I10 Hypertension type: essential hypertension Prediabetes R73.03 Frequent falls R29.6 Nausea & vomiting R11.2
[2021-07-07] MEDS: enoxaparin 40 mg/0.4 mL Syringe SUBCUT (17:03)
[2021-07-07] MEDS: pantoprazole 40 mg SDV IVP (17:03)
[2021-07-07 17:59] LABS: Anion Gap 15.1 (5-19); Blood Urea Nitrogen 11 mg/dL (8-23); Calcium 10.6 mg/dL (8.5-10.5); Carbon Dioxide 25 mmol/L (22-29); Chloride 100 mmol/L (98-107); Glomerular Filtration Rate 41.2 mL/min (90-130); Glucose 162 mg/dL (65-115); Osmolality Calculated 285 mOsm/kg (285-295); Potassium 4.1 mmol/L (3.5-5.1); Sodium 136 mmol/L (136-145)
[2021-07-07] MEDS: hyDRALAzine 20 mg/mL INJ 1 mL IVP (20:01)
[2021-07-07] MEDS: risperiDONE 2 mg Tablet PO (20:44)
--- NOTE | 2021-07-07 20:59 | PC.NURSE ---
Patient voiced concern about her right arm being bruised, states that it got worse after the day hospitalist doctor seen her today. Dr Crawford notified at this time regarding bruise. Continue to monitor and if becomes worse notify him.
[2021-07-07] MEDS: LORazepam 2 mg/mL INJ 1 mL 1 MG IVP (21:59)
[2021-07-08] VITALS (8 sets, daily range): BP systolic 124–169; BP diastolic 85–109; PULSE 77–127; RESP 16–18; TEMP 36.4–36.8; O2SAT 96–99
[2021-07-08 03:33] LABS: Eosinophils # 0.1 10^3/uL (0.0-0.8); Eosinophils % 2.7 %; Hemoglobin 12.3 g/dL (11.5-15.3); Lymphocytes # 0.9 10^3/uL (0.8-4.8); Lymphocytes % 21.1 %; Mean Corpuscular HGB Conc 34.2 g/dL (30.0-36.0); Mean Corpuscular Hemoglobin 33.2 pg (28.0-34.0); Mean Platelet Volume 9.5 fL (7.4-10.4); Monocytes # 0.6 10^3/uL (0.2-0.9); Monocytes % 14.4 %; Neutrophils % 59.6 %; Nucleated Red Blood Cells % 0 %; Platelet Count 164 10^3/cmm (130-400); Red Blood Count 3.71 10^6/uL (4.1-5.3); Red Cell Distribution Width 11.9 % (12.1-15.1)
[2021-07-08 03:55] LABS: Alanine Aminotransferase 35 U/L (0-33); Albumin Level 3.8 g/dL (3.5-5.2); Alkaline Phosphatase 52 IU/L (35-105); Aspartate Amino Transferase 26 U/L (0-32); Blood Urea Nitrogen 12 mg/dL (8-23); Calcium 9.7 mg/dL (8.5-10.5); Carbon Dioxide 21 mmol/L (22-29); Chloride 101 mmol/L (98-107); Globulin 1.9 g/dL (1.3-4.6); Glucose 154 mg/dL (65-115); Osmolality Calculated 283 mOsm/kg (285-295); Sodium 135 mmol/L (136-145); Total Bilirubin 0.7 mg/dL (0.15-1.2); Total Protein 5.7 g/dL (6.6-8.7)
[2021-07-08] MEDS: chlordiazePOXIDE 25 mg Capsule PO ×2 (09:33→20:07)
[2021-07-08] MEDS: amlodipine 10 mg Tablet PO (09:33)
[2021-07-08] MEDS: ferrous gluconate 324 mg Tablet PO ×2 (09:33→17:03)
[2021-07-08] MEDS: thiamine 100 mg Tablet PO (09:34)
[2021-07-08] MEDS: multivitamin therapeutic Tablet 1 TAB PO (09:34)
[2021-07-08] MEDS: losartan 50 mg Tablet PO (09:34)
[2021-07-08] MEDS: fenofibrate 145 mg Tablet PO (09:34)
[2021-07-08] MEDS: folic acid 1 mg Tablet PO (09:34)
[2021-07-08] MEDS: atorvastatin 40 mg Tablet 20 MG PO (09:34)
--- NOTE | 2021-07-08 10:03 | PM.PN ---
Subjective Subjective: No complaints overnight. Patient has remained hemodynamically stable. Last Ativan given at yesterday night at 9 PM. Today morning examination seen with sitter at bedside. Patient is sleeping, a little hard to awake but on waking up is AOx3. Blood pressure is better controlled. Received 1 dose of IV hydralazine yesterday evening for elevated blood pressures. Vitals/I&O/Wt Last Vital Signs Temp 98.3 F 07/08/21 08:40 Pulse 97 07/08/21 08:40 Resp 18 07/08/21 08:40 BP 126/85 07/08/21 09:34 Pulse Ox 96 07/08/21 08:40 07/07/21 07/08/21 07/08/21 22:59 06:59 14:59 Intake Total 1076.25 / 1296.25 0 / 1296.25 Balance 1076.25 / 1096.25 0 / 1096.25 Weight last 48 hrs Weight 65.374 kg Weight 67.358 kg Weight 66.996 kg Physical Exam Narrative: General: No acute distress, alert oriented to self, place, confused, small abrasion present at the bridge of the nose, not open wound. CIWA: 4-5 HEENT: PERRLA, pupils bilaterally equal and reactive Chest: Normal vesicular breath sounds, no added sounds, equal good air entry bilaterally CVS: S1-S2 regular, no murmurs, no tachycardia, no gallops, no rubs Abdomen: Soft, nontender, no organomegaly, bowel sounds present Neuro: No focal deficits, no facial deformity, AO x3, power 5/5 in all limbs Data : 07/08/21 03:05 07/08/21 03:05 A&P Assessment and plan (1) Wernicke encephalopathy: Status: Acute (2) Alcohol withdrawal: Status: Acute (3) Alcohol abuse: Status: Acute (4) Hyponatremia: Status: Acute (5) Hypokalemia: Status: Acute (6) Hypertension: Status: Acute Qualifiers: Hypertension type: essential hypertension Qualified Code(s): I10 - Essential (primary) hypertension (7) Prediabetes: Status: Acute (8) Frequent falls: Status: Acute (9) Nausea & vomiting: Status: Acute Plan 56-year-old female with past history of chronic alcohol abuse presented to the ER today because of multiple episodes of vomiting for last 1 week and falls for last 2 days. Wernicke's encephalopathy: MR head consistent with Wernicke's encephalopathy. Most likely worsening with hyponatremia in combination of for whole withdrawal. Ammonia levels within normal limit, CT head negative for stroke. Hyponatremia: Resolved, Hypervolemic hyponatremia in setting of chronic alcohol abuse. Stop IVF. Check BMP every 12 hours. Alcohol withdrawal: Ativan 1 mg every 2 hours as needed. Wean Librium to 25 mg every 8 hour. Precedex drip. Monitor heart rate. Chronic alcoholism: Oral folic acid and thiamine. [facility] protocol Hypertension: Goal blood pressure less than 140/90 mmHg. Blood pressure is elevated today. Start on losartan 25 mg daily. Will uptitrate accordingly. Supposed to take amlodipine 10 mg, hydrochlorothiazide, losartan at home. As per patient not taking medicine for last 3 months. Blood pressure borderline currently. Hold off on any antihypertensives. Nausea, vomiting: Resolved. Most likely secondary to chronic alcohol abuse. History of GERD. Zofran as needed, Protonix daily. Lipase level within normal limits. CT abdomen pelvis negative for acute pancreatitis or acute pathology but consistent with pancreatic head mass which is most likely consistent with pancreatic cyst though malignancy cannot be ruled out. Will need nonemergent follow-up MRI. Liver transaminases mildly elevated most likely secondary to chronic alcohol abuse but not significant. Bilirubin within normal limit. Frequent falls: PT/OT. Orthostatic check negative Full code. Protonix OPD prophylaxis. Lovenox for DVT prophylaxis. Mechanical soft regular diet. Patient would like her daughter Lizet to make medical decisions for her in case she is not able to make her medical decisions herself. Plan for day: Stop IV Ativan. Wean down Librium 25 mg every 12 hourly. Hyponatremia has resolved. Continue with oral diet. Monitor BMP daily for now. Increase losartan to 50 mg daily, restart home dose of amlodipine 10 mg daily. Hydralazine 5 mg IV every 4 hours as needed for systolic blood pressure more than 180 mmHg. Out of bed to chair. Discharge planning: Patient continues to decline placement to SNF. Physical therapy evaluation appreciated. Plan to discharge home with home health once able to wean down Librium completely. Attestations Medical Necessity Statement*: Requires further hospitalization for management of Wernicke's encephalopathy, alcohol withdrawal while safe discharge planning is sought. Time Spent in Patient Care: Greater than 35 minutes Coding Level of Care Code Acute Poolroom Table Attendant for [facility] Diagnoses Wernicke encephalopathy E51.2 Alcohol withdrawal F10.239 Alcohol abuse F10.10 Hyponatremia E87.1 Hypokalemia E87.6 Hypertension I10 Hypertension type: essential hypertension Prediabetes R73.03 Frequent falls R29.6 Nausea & vomiting R11.2
[2021-07-08] MEDS: metoprolol tartrate 25 mg Tablet PO ×2 (11:39→20:07)
[2021-07-08] MEDS: potassium chloride ER 10 mEq Tablet PO ×3 (11:39→20:07)
[2021-07-08] MEDS: pantoprazole 40 mg SDV IVP (17:02)
[2021-07-08] MEDS: enoxaparin 40 mg/0.4 mL Syringe SUBCUT (17:02)
[2021-07-08] MEDS: risperiDONE 2 mg Tablet PO (20:07)
[2021-07-08] MEDS: loperamide 2 mg Capsule PO (20:08)
[2021-07-09 06:04] LABS: Alanine Aminotransferase 27 U/L (0-33); Albumin Level 3.6 g/dL (3.5-5.2); Alkaline Phosphatase 42 IU/L (35-105); Anion Gap 14.8 (5-19); Aspartate Amino Transferase 20 U/L (0-32); Blood Urea Nitrogen 14 mg/dL (8-23); Calcium 9.3 mg/dL (8.5-10.5); Carbon Dioxide 20 mmol/L (22-29); Chloride 105 mmol/L (98-107); Globulin 1.5 g/dL (1.3-4.6); Glucose 158 mg/dL (65-115); Osmolality Calculated 286 mOsm/kg (285-295); Potassium 3.8 mmol/L (3.5-5.1); Sodium 136 mmol/L (136-145); Total Bilirubin 0.5 mg/dL (0.15-1.2); Total Protein 5.1 g/dL (6.6-8.7)
[2021-07-09 07:12] VITALS: BP 137/85; PULSE 76; RESP 20; TEMP 36.9; O2SAT 97
[2021-07-09] MEDS: chlordiazePOXIDE 25 mg Capsule PO (09:09)
[2021-07-09] MEDS: ferrous gluconate 324 mg Tablet PO ×2 (09:09→18:08)
[2021-07-09 09:10] VITALS: BP 137/85
[2021-07-09] MEDS: thiamine 100 mg Tablet PO (09:10)
[2021-07-09] MEDS: metoprolol tartrate 25 mg Tablet PO ×2 (09:10→20:59)
[2021-07-09] MEDS: potassium chloride ER 10 mEq Tablet PO ×3 (09:10→20:59)
[2021-07-09] MEDS: folic acid 1 mg Tablet PO (09:10)
[2021-07-09] MEDS: multivitamin therapeutic Tablet 1 TAB PO (09:10)
[2021-07-09] MEDS: fenofibrate 145 mg Tablet PO (09:10)
[2021-07-09] MEDS: amlodipine 10 mg Tablet PO (09:10)
[2021-07-09] MEDS: atorvastatin 40 mg Tablet 20 MG PO (09:10)
[2021-07-09] MEDS: losartan 50 mg Tablet PO (09:10)
[2021-07-09 11:31] VITALS: BP 121/86; PULSE 72; RESP 18; TEMP 36.7; O2SAT 93
--- NOTE | 2021-07-09 11:51 | PC.SOCIAL ---
IMM update IMM updated with patient. Verbalized an understanding. Copy Pg 2 provided. Initialled, dated, timed, and placed in chart.
--- NOTE | 2021-07-09 14:34 | P.PN_ITS ---
Subjective Subjective: No complaints overnight. Patient is a lot more awake and alert today morning. Able to have complete conversation. Denies any nausea, vomiting, headache. States she is less jittery. Eating her food. We discussed that she is extremely unsteady on her feet and is at high risk of fall. We discussed for the possibility of safe discharge planning to home with home health if she has 24-hour care around versus placement to SNF. Patient verbalized understanding and for now is agreeable for SNF placement. Vitals/I&O/Wt Last Vital Signs Temp 98.0 F 07/09/21 11:31 Pulse 72 07/09/21 11:31 Resp 18 07/09/21 11:31 BP 121/86 07/09/21 11:31 Pulse Ox 93 07/09/21 11:31 07/08/21 07/09/21 07/09/21 22:59 06:59 14:59 Intake Total 110 / 110 50 / 160 360 / 360 Output Total / Balance 109 / 109 50 / 159 360 / 360 Weight last 48 hrs Weight 63.367 kg Weight 65.374 kg Physical Exam Narrative: General: No acute distress, slow to respond, AO x3. Small abrasion present at the bridge of the nose, not open wound. CIWA: 2-3 HEENT: PERRLA, pupils bilaterally equal and reactive Chest: Normal vesicular breath sounds, no added sounds, equal good air entry bilaterally CVS: S1-S2 regular, no murmurs, no tachycardia, no gallops, no rubs Abdomen: Soft, nontender, no organomegaly, bowel sounds present Neuro: No focal deficits, no facial deformity, AO x3, power 5/5 in all limbs Data : 07/08/21 03:05 07/09/21 04:53 Micro: Microbiology 07/08/21 13:28 Enteric Pathogens (PCR) - Final Stool - Stool Aspirate 07/08/21 13:28 C.difficile Toxin B Gene (PCR) - Final Stool - Stool Aspirate A&P Assessment and plan (1) Wernicke encephalopathy: Status: Acute (2) Alcohol withdrawal: Status: Acute (3) Alcohol abuse: Status: Acute (4) Hyponatremia: Status: Acute (5) Hypokalemia: Status: Acute (6) Hypertension: Status: Acute Qualifiers: Hypertension type: essential hypertension Qualified Code(s): I10 - Essential (primary) hypertension (7) Prediabetes: Status: Acute (8) Frequent falls: Status: Acute (9) Nausea & vomiting: Status: Acute (10) Unsteady gait when walking: Status: Acute Plan 56-year-old female with past history of chronic alcohol abuse presented to the ER today because of multiple episodes of vomiting for last 1 week and falls for last 2 days. Wernicke's encephalopathy: MR head consistent with Wernicke's encephalopathy. Most likely worsening with hyponatremia in combination of for whole withdrawal. Ammonia levels within normal limit, CT head negative for stroke. Hyponatremia: Resolved, Hypervolemic hyponatremia in setting of chronic alcohol abuse. Stop IVF. Check BMP daily. Alcohol withdrawal: Stop Ativan. Wean Librium to 12.5 mg Q12h. Remove sitter. Chronic alcoholism: Oral folic acid and thiamine. [facility] protocol Hypertension: Goal blood pressure less than 140/90 mmHg. Continue with home dose of losartan, amlodipine. Nausea, vomiting: Resolved. Most likely secondary to chronic alcohol abuse. History of GERD. Zofran as needed, Protonix daily. Lipase level within normal limits. CT abdomen pelvis negative for acute pancreatitis or acute pathology but consistent with pancreatic head mass which is most likely consistent with pancreatic cyst though malignancy cannot be ruled out. Will need nonemergent follow-up MRI. Liver transaminases mildly elevated most likely secondary to chronic alcohol abuse but not significant. Bilirubin within normal limit. Frequent falls: PT/OT. Orthostatic check negative Full code. Protonix OPD prophylaxis. Lovenox for DVT prophylaxis. Mechanical soft regular diet. Patient would like her daughter Lizet to make medical decisions for her in case she is not able to make her medical decisions herself. Discharge planning: Discussed in detail with patient today. Physical therapy evaluation appreciated. She understands she is fairly weak and unsteady on her feet most likely secondary to Wernicke's encephalopathy and chronic alcohol abuse. We discussed that it is and safe for her to go home until she can have 24-hour help/surveillance. Patient verbalized understanding and for now is agr eeable for SNF placement if possible. Case management has been alerted. Tried calling patient's daughter Ms. Hinds on the phone. Could not get through. Left message. Attestations Medical Necessity Statement*: Requires further hospitalization for management of alcohol withdrawal, Wernicke's encephalopathy while safe discharge planning is sought. Time Spent in Patient Care: Greater than 35 minutes Coding Level of Care Code Acute Industrial Waste Inspector for [facility] Diagnoses Wernicke encephalopathy E51.2 Alcohol withdrawal F10.239 Alcohol abuse F10.10 Hyponatremia E87.1 Hypokalemia E87.6 Hypertension I10 Hypertension type: essential hypertension Prediabetes R73.03 Frequent falls R29.6 Nausea & vomiting R11.2 Unsteady gait when walking R26.81
[2021-07-09 15:28] VITALS: BP 143/97; PULSE 88; RESP 20; TEMP 37.3; O2SAT 94
[2021-07-09] MEDS: pantoprazole DR 40 mg Tablet PO (18:08)
[2021-07-09] MEDS: enoxaparin 40 mg/0.4 mL Syringe SUBCUT (18:08)
[2021-07-09 20:00] VITALS: BP 121/87; PULSE 101; RESP 16; TEMP 36.6; O2SAT 98
[2021-07-09] MEDS: risperiDONE 2 mg Tablet PO (20:59)
[2021-07-09] MEDS: chlordiazePOXIDE 10 mg Capsule PO (20:59)
[2021-07-10] VITALS (7 sets, daily range): BP systolic 113–152; BP diastolic 77–99; PULSE 66–83; RESP 12–18; TEMP 34.2–36.9; O2SAT 94–98
[2021-07-10 04:23] LABS: Glucose Point of Care 128 mg/dL (70-110)
[2021-07-10 04:58] LABS: Basophils % 0.9 %; Eosinophils # 0.1 10^3/uL (0.0-0.8); Eosinophils % 2.8 %; Hematocrit 34.6 % (37.0-47.0); Hemoglobin 11.8 g/dL (11.5-15.3); Lymphocytes # 0.9 10^3/uL (0.8-4.8); Lymphocytes % 25.9 %; Mean Corpuscular HGB Conc 34.1 g/dL (30.0-36.0); Mean Corpuscular Hemoglobin 33.8 pg (28.0-34.0); Mean Corpuscular Volume 99.1 fl (81-99); Mean Platelet Volume 9.6 fL (7.4-10.4); Monocytes # 0.8 10^3/uL (0.2-0.9); Monocytes % 23.4 %; Neutrophils # 1.61 10^3/uL (1.8-7.7); Neutrophils % 45.9 %; Nucleated Red Blood Cells % 0 %; Platelet Count 196 10^3/cmm (130-400); Red Blood Count 3.49 10^6/uL (4.1-5.3); White Blood Count 3.5 10^3/uL (4.0-10.0)
[2021-07-10 05:20] LABS: Alanine Aminotransferase 29 U/L (0-33); Albumin Level 3.8 g/dL (3.5-5.2); Alkaline Phosphatase 47 IU/L (35-105); Aspartate Amino Transferase 26 U/L (0-32); Blood Urea Nitrogen 17 mg/dL (8-23); Calcium 10.2 mg/dL (8.5-10.5); Carbon Dioxide 21 mmol/L (22-29); Chloride 103 mmol/L (98-107); Globulin 2.2 g/dL (1.3-4.6); Glomerular Filtration Rate 55.8 mL/min (90-130); Glucose 144 mg/dL (65-115); Osmolality Calculated 284 mOsm/kg (285-295); Sodium 135 mmol/L (136-145); Total Bilirubin 0.6 mg/dL (0.15-1.2)
[2021-07-10] MEDS: ferrous gluconate 324 mg Tablet PO ×2 (10:11→17:21)
[2021-07-10] MEDS: atorvastatin 40 mg Tablet 20 MG PO (10:12)
[2021-07-10] MEDS: docusate sodium 100 mg Capsule PO (10:12)
[2021-07-10] MEDS: chlordiazePOXIDE 10 mg Capsule PO ×2 (10:12→20:45)
[2021-07-10] MEDS: amlodipine 10 mg Tablet PO (10:13)
[2021-07-10] MEDS: fenofibrate 145 mg Tablet PO (10:13)
[2021-07-10] MEDS: folic acid 1 mg Tablet PO (10:18)
[2021-07-10] MEDS: potassium chloride ER 10 mEq Tablet PO ×3 (10:19→20:45)
[2021-07-10] MEDS: multivitamin therapeutic Tablet 1 TAB PO (10:19)
[2021-07-10] MEDS: losartan 50 mg Tablet PO (10:19)
[2021-07-10] MEDS: thiamine 100 mg Tablet PO (10:20)
[2021-07-10] MEDS: metoprolol tartrate 25 mg Tablet PO ×2 (10:20→20:45)
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
[2021-07-10] MEDS: enoxaparin 40 mg/0.4 mL Syringe SUBCUT (17:21)
[2021-07-10] MEDS: pantoprazole DR 40 mg Tablet PO (17:21)
[2021-07-10] MEDS: risperiDONE 2 mg Tablet PO (20:45)
[2021-07-11] VITALS (7 sets, daily range): BP systolic 117–145; BP diastolic 80–97; PULSE 67–89; RESP 16–18; TEMP 36.4–36.9; O2SAT 95–98
--- NOTE | 2021-07-11 06:09 | PC.NURSE ---
SHIFT SUMMARY Has slept for intervals. Confused but cooperative. Is oriented to self and sometimes place but not situation, day, or date. Did know the year was 2021. Does try to get OOB by self when she needs to go to the bathroom. Is weak and unsteady. Bed alarm kept on for safety. Occ will call out for help when she needs something and forgets to use her call light. Has denied any pain. No signs of withdrawals per [place] assessments.
--- NOTE | 2021-07-11 08:31 | PC.SOCIAL ---
IMM Update pg 2 of IMM updated and reviewed w/ patient. Copy provided and copy in chart updated.
[2021-07-11] MEDS: docusate sodium 100 mg Capsule PO ×2 (09:16→17:24)
[2021-07-11] MEDS: ferrous gluconate 324 mg Tablet PO ×2 (09:16→17:24)
[2021-07-11] MEDS: fenofibrate 145 mg Tablet PO (09:16)
[2021-07-11] MEDS: chlordiazePOXIDE 10 mg Capsule PO (09:16)
[2021-07-11] MEDS: amlodipine 10 mg Tablet PO (09:17)
[2021-07-11] MEDS: atorvastatin 40 mg Tablet 20 MG PO (09:17)
[2021-07-11] MEDS: potassium chloride ER 10 mEq Tablet PO ×3 (09:26→21:36)
[2021-07-11] MEDS: metoprolol tartrate 25 mg Tablet PO ×2 (09:27→21:36)
[2021-07-11] MEDS: folic acid 1 mg Tablet PO (09:27)
[2021-07-11] MEDS: losartan 50 mg Tablet PO (09:27)
[2021-07-11] MEDS: multivitamin therapeutic Tablet 1 TAB PO (09:28)
--- NOTE | 2021-07-11 10:53 | P.PN_ITS ---
Subjective Subjective: Seen this morning. No acute events overnight. Patient states she is doing well and has been working with physical therapy. She states she is aware she is waiting for bed placement. Vitals/I&O/Wt Last Vital Signs Temp 97.6 F 07/11/21 07:31 Pulse 84 07/11/21 07:31 Resp 16 07/11/21 07:31 BP 126/84 07/11/21 07:31 Pulse Ox 98 07/11/21 07:31 07/10/21 07/11/21 07/11/21 22:59 06:59 14:59 Intake Total 200 / 440 120 / 560 330 / 330 Output Total 550 / 850 400 / 1250 Balance -350 / -410 -280 / -690 330 / 330 Weight last 48 hrs Weight 63.957 kg Weight 62.868 kg Physical Exam Narrative: General: No acute distress, AO x3.? Small abrasion present at the bridge of the nose, not open wound.? HEENT: Normocephalic atraumatic, EOMI, edentulous Chest: Clear to auscultation bilaterally no wheezes no rhonchi present. CVS: S1-S2 regular, no gross murmurs evident Abdomen: Soft, nontender, bowel sounds present Neuro: Nonfocal, AAOx3 Data : 07/10/21 04:29 07/10/21 04:29 A&P Assessment and plan (1) Unsteady gait when walking: Status: Acute (2) Alcohol withdrawal: Status: Acute (3) Wernicke encephalopathy: Status: Acute (4) Frequent falls: Status: Acute (5) Alcohol abuse: Status: Acute (6) Nausea & vomiting: Status: Acute (7) Hyponatremia: Status: Acute (8) Hypokalemia: Status: Acute (9) GERD (gastroesophageal reflux disease): Status: Acute Qualifiers: Esophagitis presence: without esophagitis Qualified Code(s): K21.9 - Gastro-esophageal reflux disease without esophagitis (10) CKD (chronic kidney disease): Status: Acute Qualifiers: Chronic kidney disease stage: stage 2 (mild) Qualified Code(s): N18.2 - Chronic kidney disease, stage 2 (mild) (11) Hyperlipidemia: Status: Acute Qualifiers: Hyperlipidemia type: mixed hyperlipidemia Qualified Code(s): E78.2 - Mixed hyperlipidemia (12) Hypertension: Status: Acute Qualifiers: Hypertension type: essential hypertension Qualified Code(s): I10 - Essential (primary) hypertension (13) Apnea, sleep: Status: Acute Plan 56-year-old female with past history of chronic alcohol abuse consuming 1 to 1- 1/2 gallon of whiskey every other day for many years presented to the ER because of multiple episodes of vomiting for last 1 week and falls for last 2 days prior to admission. She does have a history of aortic encephalopathy which was confirmed with MRI. CT head negative for stroke, ammonia level normal. Hyponatremic on admission which has resolved at this point. Most likely component of hypervolemic hyponatremia in setting of chronic alcohol abuse. During hospitalization patient went into alcohol withdrawal which was managed medically prevent Precedex drip. Currently alcohol withdrawal has resolved. She is on a tapering dose of Librium. Physical therapy evaluated the patient and she is extremely unsteady on her gait. She is pending placement to SNF because of high risk of fall because of unsteady gait. #Wernicke's encephalopathy secondary to alcohol abuse #Hypervolemic hyponatremia?resolved #Alcohol withdrawal #Nausea vomiting secondary to alcohol abuse, history of GERD?resolved #Frequent falls, unsteady gait secondary to alcohol abuse #Hypertension ? Continue to taper Librium. Continue Librium 10 mg daily until 07/13. Then stop ? Pancreatic head mass seen on CT consistent with pancreatic cyst though malignancy cannot be ruled out. She will need nonemergent follow-up MRI. ? Continue folic acid, thiamine, multivitamin. ? Continue losartan and amlodipine ? Pending placement at this point. She has been off of sitter for greater than 48 hours. Full code. Protonix for PUD prophylaxis. Lovenox for DVT prophylaxis. Mechanical soft regular diet. Patient would like her daughter Lizet to make medical decisions for her in case she is not able to make her medical decisions herself. Attestations Medical Necessity Statement*: Taper Librium. Pending placement. internet technology manager are working on finding placement. Coding Level of Care Code Acute Receiving Manager for [facility] Fwd Diagnoses Unsteady gait when walking R26.81 Alcohol withdrawal F10.239 Wernicke encephalopathy E51.2 Frequent falls R29.6 Alcohol abuse F10.10 Nausea & vomiting R11.2 Hyponatremia E87.1 Hypokalemia E87.6 GERD (gastroesophageal reflux disease) K21.9 Esophagitis presence: without esophagitis CKD (chronic kidney disease) N18.2 Chronic kidney disease stage: stage 2 (mild) Hyperlipidemia E78.2 Hyperlipidemia type: mixed hyperlipidemia Hypertension I10 Hypertension type: essential hypertension Apnea, sleep G47.30
[2021-07-11] MEDS: pantoprazole DR 40 mg Tablet PO (17:24)
[2021-07-11] MEDS: enoxaparin 40 mg/0.4 mL Syringe SUBCUT (17:24)
[2021-07-11] MEDS: risperiDONE 2 mg Tablet PO (21:36)
[2021-07-12 03:22] VITALS: BP 153/93; PULSE 66; RESP 18; TEMP 36.4; O2SAT 99
[2021-07-12 08:00] VITALS: BP 127/85; PULSE 81; TEMP 36.6; O2SAT 98
[2021-07-12] MEDS: amlodipine 10 mg Tablet PO (08:31)
[2021-07-12] MEDS: folic acid 1 mg Tablet PO (08:31)
[2021-07-12] MEDS: chlordiazePOXIDE 10 mg Capsule PO (08:31)
[2021-07-12] MEDS: multivitamin therapeutic Tablet 1 TAB PO (08:31)
[2021-07-12] MEDS: fenofibrate 145 mg Tablet PO (08:31)
[2021-07-12] MEDS: docusate sodium 100 mg Capsule PO ×2 (08:31→17:12)
[2021-07-12] MEDS: ferrous gluconate 324 mg Tablet PO ×2 (08:31→17:12)
[2021-07-12] MEDS: metoprolol tartrate 25 mg Tablet PO ×2 (08:31→21:21)
[2021-07-12 08:32] VITALS: BP 127/85
[2021-07-12] MEDS: atorvastatin 40 mg Tablet 20 MG PO (08:32)
[2021-07-12] MEDS: losartan 50 mg Tablet PO (08:32)
[2021-07-12] MEDS: potassium chloride ER 10 mEq Tablet PO ×3 (08:32→21:21)
--- NOTE | 2021-07-12 10:38 | P.PN_ITS ---
Subjective Subjective: seen this am. no acute events overnight. Vitals/I&O/Wt Last Vital Signs Temp 97.8 F 07/12/21 08:00 Pulse 81 07/12/21 08:00 Resp 18 07/12/21 03:22 BP 127/85 07/12/21 08:32 Pulse Ox 98 07/12/21 08:00 07/11/21 07/12/21 07/12/21 22:59 06:59 14:59 Intake Total 240 / 1287 720 / 720 Output Total 450 / 450 350 / 800 Balance -210 / 837 -350 / 487 720 / 720 Weight last 48 hrs Weight 63.639 kg Weight 63.957 kg Physical Exam Narrative: General: No acute distress, AO x3.? Small abrasion present at the bridge of the nose, not open wound.? HEENT: Normocephalic atraumatic, EOMI, edentulous Chest: Clear to auscultation bilaterally no wheezes no rhonchi present. CVS: S1-S2 regular, no gross murmurs evident Abdomen: Soft, nontender, bowel sounds present Neuro: Nonfocal, AAOx3 Data : 07/10/21 04:29 07/10/21 04:29 A&P Assessment and plan (1) Unsteady gait when walking: Status: Acute (2) Alcohol withdrawal: Status: Acute (3) Wernicke encephalopathy: Status: Acute (4) Frequent falls: Status: Acute (5) Alcohol abuse: Status: Acute (6) Nausea & vomiting: Status: Acute Plan 56-year-old female with past history of chronic alcohol abuse consuming 1 to 1- 1/2 gallon of whiskey every other day for many years presented to the ER because of multiple episodes of vomiting for last 1 week and falls for last 2 days prior to admission.? She does have a history of aortic encephalopathy which was confirmed with MRI.? CT head negative for stroke, ammonia level normal.? Hyponatremic on admission which has resolved at this point.? Most likely component of hypervolemic hyponatremia in setting of chronic alcohol abuse.? During hospitalization patient went into alcohol withdrawal which was managed medically prevent Precedex drip.? Currently alcohol withdrawal has resolved.? She is on a tapering dose of Librium.? Physical therapy evaluated the patient and she is extremely unsteady on her gait.? She is pending placement to SNF because of high risk of fall because of unsteady gait. #Wernicke's encephalopathy secondary to alcohol abuse #Hypervolemic hyponatremia?resolved #Alcohol withdrawal #Nausea vomiting secondary to alcohol abuse, history of GERD?resolved #Frequent falls, unsteady gait secondary to alcohol abuse #Hypertension ? Continue to taper Librium.? Continue Librium 10 mg daily until 07/13.? Then stop ? Pancreatic head mass seen on CT consistent with pancreatic cyst though malignancy cannot be ruled out.? She will need nonemergent follow-up MRI. ? Continue folic acid, thiamine, multivitamin. ? Continue losartan and amlodipine ? Pending placement at this point.? She has been off of sitter for greater than 72 hours. Full code. Protonix for PUD prophylaxis. Lovenox for DVT prophylaxis. Mechanical soft regular diet. Patient would like her daughter Lizet to make medical decisions for her in case she is not able to make her medical decisions herself. Attestations Medical Necessity Statement*: Pending placement.? 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 Coding Level of Care Code Acute Physician for [facility] Fwd Diagnoses Unsteady gait when walking R26.81 Alcohol withdrawal F10.239 Wernicke encephalopathy E51.2 Frequent falls R29.6 Alcohol abuse F10.10 Nausea & vomiting R11.2
[2021-07-12 13:19] VITALS: BP 148/93; PULSE 73; RESP 18; TEMP 36.4; O2SAT 96
[2021-07-12 16:22] VITALS: BP 128/88; PULSE 69; RESP 18; TEMP 36.2; O2SAT 96
[2021-07-12] MEDS: enoxaparin 40 mg/0.4 mL Syringe SUBCUT (17:12)
[2021-07-12] MEDS: pantoprazole DR 40 mg Tablet PO (17:12)
[2021-07-12] MEDS: risperiDONE 2 mg Tablet PO (21:21)
[2021-07-12 23:54] VITALS: BP 139/89; PULSE 77; RESP 16; TEMP 36.3; O2SAT 98
[2021-07-13 02:26] LABS: Anion Gap 13.6 (5-19); Blood Urea Nitrogen 15 mg/dL (8-23); Calcium 10.6 mg/dL (8.5-10.5); Carbon Dioxide 24 mmol/L (22-29); Chloride 104 mmol/L (98-107); Glomerular Filtration Rate 55.8 mL/min (90-130); Glucose 150 mg/dL (65-115); Osmolality Calculated 290 mOsm/kg (285-295); Potassium 3.6 mmol/L (3.5-5.1); Sodium 138 mmol/L (136-145)
[2021-07-13 02:52] LABS: Magnesium 0.9 mg/dL (1.7-2.3)
[2021-07-13 04:00] VITALS: BP 120/81; PULSE 59; RESP 16; TEMP 36.4; O2SAT 91
[2021-07-13] MEDS: magnesium sulfate premix 4 GM/100 ML PREMIX IV (04:25)
[2021-07-13 08:00] VITALS: BP 125/54; PULSE 74; RESP 16; TEMP 36.4; O2SAT 93
[2021-07-13] MEDS: ferrous gluconate 324 mg Tablet PO ×2 (09:20→19:03)
[2021-07-13] MEDS: atorvastatin 40 mg Tablet 20 MG PO (09:20)
[2021-07-13] MEDS: docusate sodium 100 mg Capsule PO ×2 (09:20→19:03)
[2021-07-13] MEDS: potassium chloride ER 20 mEq Tablet 40 MEQ PO (09:21)
[2021-07-13] MEDS: fenofibrate 145 mg Tablet PO (09:21)
[2021-07-13] MEDS: potassium chloride ER 10 mEq Tablet PO ×3 (09:21→22:14)
[2021-07-13] MEDS: folic acid 1 mg Tablet PO (09:21)
[2021-07-13] MEDS: multivitamin therapeutic Tablet 1 TAB PO (09:21)
[2021-07-13 10:59] VITALS: BP 113/77; PULSE 80; RESP 16; TEMP 36.4; O2SAT 97
--- NOTE | 2021-07-13 11:21 | PC.NURSE ---
Dr. Carson in patient room this am. Patients blood pressure was 125/[address] Carson said to hold blood pressure medications (metoprolol, Losartan and amlodipine until she got back with me.
--- NOTE | 2021-07-13 11:25 | PC.SOCIAL ---
IMM UPDATED IMM dated and initialed and copy given to patient
--- NOTE | 2021-07-13 12:43 | P.PN_ITS ---
Subjective Subjective: Seen this morning. Patient states that she would like to drink some water. She has been on a fluid restriction and she does not know why. I discussed with nurse and we went over her chart together. Patient fluid resection was placed at admission and somehow the order carried onwards and she is still on it. I have remove the fluid restriction at this point. Also her blood pressure medications were held this morning due to her pressures being on the softer side. Magnesium was low which was repleted by night hospitalist. No other acute events overnight. Vitals/I&O/Wt Last Vital Signs Temp 97.5 F L 07/13/21 10:59 Pulse 80 07/13/21 10:59 Resp 16 07/13/21 10:59 BP 113/77 07/13/21 10:59 Pulse Ox 97 07/13/21 10:59 07/12/21 07/13/21 07/13/21 22:59 06:59 14:59 Intake Total 0 / 960 Output Total 300 / 300 Balance -300 / 660 0 / 660 Weight last 48 hrs Weight 62.142 kg Weight 63.639 kg Physical Exam Narrative: General: No acute distress, AO x3.? Small abrasion present at the bridge of the nose, not open wound.? HEENT: Normocephalic atraumatic, EOMI, edentulous Chest: Clear to auscultation bilaterally no wheezes no rhonchi present. CVS: S1-S2 regular, no gross murmurs evident Abdomen: Soft, nontender, bowel sounds present Neuro: Nonfocal, AAOx3 Data : 07/10/21 04:29 07/13/21 01:25 A&P Assessment and plan (1) Unsteady gait when walking: Status: Acute (2) Alcohol withdrawal: Status: Acute (3) Wernicke encephalopathy: Status: Acute (4) Frequent falls: Status: Acute (5) Nausea & vomiting: Status: Acute (6) Alcohol abuse: Status: Acute (7) Hyponatremia: Status: Acute (8) Hypokalemia: Status: Acute (9) CKD (chronic kidney disease): Status: Acute Qualifiers: Chronic kidney disease stage: stage 2 (mild) Qualified Code(s): N18.2 - Chronic kidney disease, stage 2 (mild) Plan 56-year-old female with past history of chronic alcohol abuse consuming 1 to 1- 1/2 gallon of whiskey every other day for many years presented to the ER because of multiple episodes of vomiting for last 1 week and falls for last 2 days prior to admission.? She does have a history of aortic encephalopathy which was confirmed with MRI.? CT head negative for stroke, ammonia level normal.? Hyp onatremic on admission which has resolved at this point.? Most likely component of hypervolemic hyponatremia in setting of chronic alcohol abuse.? During hospitalization patient went into alcohol withdrawal which was managed medically prevent Precedex drip.? Currently alcohol withdrawal has resolved.? She is on a tapering dose of Librium.? Physical therapy evaluated the patient and she is extremely unsteady on her gait.? She is pending placement to SNF because of high risk of fall because of unsteady gait. #Wernicke's encephalopathy secondary to alcohol abuse #Hypervolemic hyponatremia?resolved #Alcohol withdrawal #Nausea vomiting secondary to alcohol abuse, history of GERD?resolved #Frequent falls, unsteady gait secondary to alcohol abuse #Hypertension #Hypomagnesemia ? Librium tapered and stopped. ? Pancreatic head mass seen on CT consistent with pancreatic cyst though malignancy cannot be ruled out.? She will need nonemergent follow-up MRI. ? Continue folic acid, thiamine, multivitamin. ? Pressures a little on the soft side. We will hold losartan and amlodipine today. Continue metoprolol. ? Pending placement at this point.? -Continue to replete electrolytes as needed. Full code. Protonix for PUD prophylaxis. Lovenox for DVT prophylaxis. Mechanical soft regular diet. Patient would like her daughter Lizet to make medical decisions for her in ca se she is not able to make her medical decisions herself. Attestations Medical Necessity Statement*: Pending bed placement. Coding Level of Care Code Acute Reporting Process Consultant for [facility] Fwd Diagnoses Unsteady gait when walking R26.81 Alcohol withdrawal F10.239 Wernicke encephalopathy E51.2 Frequent falls R29.6 Nausea & vomiting R11.2 Alcohol abuse F10.10 Hyponatremia E87.1 Hypokalemia E87.6 CKD (chronic kidney disease) N18.2 Chronic kidney disease stage: stage 2 (mild)
[2021-07-13 16:00] VITALS: BP 124/83; PULSE 78; RESP 16; TEMP 37; O2SAT 97
[2021-07-13] MEDS: enoxaparin 40 mg/0.4 mL Syringe SUBCUT (17:35)
[2021-07-13] MEDS: pantoprazole DR 40 mg Tablet PO (17:35)
[2021-07-13 19:24] VITALS: BP 130/91; PULSE 75; RESP 18; TEMP 36.4; O2SAT 93
[2021-07-13] MEDS: risperiDONE 2 mg Tablet PO (22:14)
[2021-07-13] MEDS: metoprolol tartrate 25 mg Tablet PO (22:15)
[2021-07-14] VITALS (7 sets, daily range): BP systolic 114–157; BP diastolic 70–97; PULSE 69–95; RESP 14–20; TEMP 36.5–37.1; O2SAT 94–98
[2021-07-14] MEDS: ferrous gluconate 324 mg Tablet PO ×2 (07:59→17:32)
[2021-07-14] MEDS: docusate sodium 100 mg Capsule PO ×2 (07:59→17:32)
[2021-07-14] MEDS: potassium chloride ER 10 mEq Tablet PO ×3 (07:59→21:10)
[2021-07-14] MEDS: folic acid 1 mg Tablet PO (07:59)
[2021-07-14] MEDS: multivitamin therapeutic Tablet 1 TAB PO (07:59)
[2021-07-14] MEDS: atorvastatin 40 mg Tablet 20 MG PO (07:59)
[2021-07-14] MEDS: fenofibrate 145 mg Tablet PO (07:59)
[2021-07-14] MEDS: metoprolol tartrate 25 mg Tablet PO ×2 (08:02→21:09)
--- NOTE | 2021-07-14 09:19 | PC.NURSE ---
Patient pulled out IV access and is refusing new IV site placed
--- NOTE | 2021-07-14 13:01 | PM.PN ---
Subjective Subjective: Seen this morning. No acute events overnight. Patient however did pull out her IV and refusing to have another one placed. Vitals/I&O/Wt Last Vital Signs Temp 98.3 F 07/14/21 11:56 Pulse 95 07/14/21 11:56 Resp 17 07/14/21 11:56 BP 126/82 07/14/21 11:56 Pulse Ox 98 07/14/21 11:56 07/13/21 07/14/21 07/14/21 22:59 06:59 14:59 Intake Total 500 / 500 480 / 980 Output Total 900 / 900 500 / 1400 Balance -400 / -400 -20 / -420 Weight last 48 hrs Weight 62.823 kg Weight 62.142 kg Physical Exam Narrative: General: No acute distress, AO x3.? Small abrasion present at the bridge of the nose, not open wound.? HEENT: Normocephalic atraumatic, EOMI, edentulous Chest: Clear to auscultation bilaterally no wheezes no rhonchi present. CVS: S1-S2 regular, no gross murmurs evident Abdomen: Soft, nontender, bowel sounds present Neuro: Nonfocal, AAOx3 Data : 07/10/21 04:29 07/13/21 01:25 A&P Assessment and plan (1) Unsteady gait when walking: Status: Acute (2) Alcohol withdrawal: Status: Acute (3) Wernicke encephalopathy: Status: Acute (4) Frequent falls: Status: Acute (5) Nausea & vomiting: Status: Acute (6) Alcohol abuse: Status: Acute (7) CKD (chronic kidney disease): Status: Acute Qualifiers: Chronic kidney disease stage: stage 2 (mild) Qualified Code(s): N18.2 - Chronic kidney disease, stage 2 (mild) (8) GERD (gastroesophageal reflux disease): Status: Acute Qualifiers: Esophagitis presence: without esophagitis Qualified Code(s): K21.9 - Gastro-esophageal reflux disease without esophagitis (9) Hyperlipidemia: Status: Acute Qualifiers: Hyperlipidemia type: mixed hyperlipidemia Qualified Code(s): E78.2 - Mixed hyperlipidemia (10) Hypertension: Status: Acute Qualifiers: Hypertension type: essential hypertension Qualified Code(s): I10 - Essential (primary) hypertension (11) Major depressive disorder, recurrent, moderate: Status: Acute Plan 56-year-old female with past history of chronic alcohol abuse consuming 1 to 1-1/2 gallon of whiskey every other day for many years presented to the ER because of multiple episodes of vomiting for last 1 week and falls for last 2 days prior to admission.? She does have a history of aortic encephalopathy which was confirmed with MRI.? CT head negative for stroke, ammonia level normal.? Hyponatremic on admission which has resolved at this point.? Most likely component of hypervolemic hyponatremia in setting of chronic alcohol abuse.? During hospitalization patient went into alcohol withdrawal which was managed medically prevent Precedex drip.? Currently alcohol withdrawal has resolved.? She is on a tapering dose of Librium.? Physical therapy evaluated the patient and she is extremely unsteady on her gait.? She is pending placement to SNF because of high risk of fall because of unsteady gait. #Wernicke's encephalopathy secondary to alcohol abuse #Hypervolemic hyponatremia?resolved #Alcohol withdrawal #Nausea vomiting secondary to alcohol abuse, history of GERD?resolved #Frequent falls, unsteady gait secondary to alcohol abuse #Hypertension #Hypomagnesemia ? Librium tapered and stopped. ? Pancreatic head mass seen on CT consistent with pancreatic cyst though malignancy cannot be ruled out.? She will need nonemergent follow-up MRI. ? Continue folic acid, thiamine, multivitamin. ? Pressures a little on the soft side.? We will hold losartan and amlodipine today.? Continue metoprolol. ? Pending placement at this point.? -Continue to replete electrolytes as needed. Full code. Protonix for PUD prophylaxis. Lovenox for DVT prophylaxis. Mechanical soft regular diet. Patient would like her daughter Lizet to make medical decisions for her in case she is not able to make her medical decisions herself. Attestations Medical Necessity Statement*: Pending bed placement. Coding Level of Care Code Acute Instrument Shop Supervisor for [facility] Fwd Diagnoses Unsteady gait when walking R26.81 Alcohol withdrawal F10.239 Wernicke encephalopathy E51.2 Frequent falls R29.6 Nausea & vomiting R11.2 Alcohol abuse F10.10 CKD (chronic kidney disease) N18.2 Chronic kidney disease stage: stage 2 (mild) GERD (gastroesophageal reflux disease) K21.9 Esophagitis presence: without esophagitis Hyperlipidemia E78.2 Hyperlipidemia type: mixed hyperlipidemia Hypertension I10 Hypertension type: essential hypertension Major depressive disorder, recurrent, moderate F33.1
[2021-07-14] MEDS: enoxaparin 40 mg/0.4 mL Syringe SUBCUT (17:32)
[2021-07-14] MEDS: pantoprazole DR 40 mg Tablet PO (17:32)
[2021-07-14] MEDS: risperiDONE 2 mg Tablet PO (21:09)
[2021-07-15 03:43] LABS: Anion Gap 15.7 (5-19); Blood Urea Nitrogen 16 mg/dL (8-23); Carbon Dioxide 22 mmol/L (22-29); Chloride 102 mmol/L (98-107); Glomerular Filtration Rate 72.2 mL/min (90-130); Glucose 177 mg/dL (65-115); Magnesium 1.5 mg/dL (1.7-2.3); Osmolality Calculated 288 mOsm/kg (285-295); Potassium 3.7 mmol/L (3.5-5.1); Sodium 136 mmol/L (136-145)
[2021-07-15 04:00] VITALS: BP 143/86; PULSE 66; RESP 17; TEMP 36.6; O2SAT 97
[2021-07-15 07:37] VITALS: BP 144/85; PULSE 70; RESP 17; TEMP 36.6; O2SAT 97
[2021-07-15] MEDS: fenofibrate 145 mg Tablet PO (08:06)
[2021-07-15] MEDS: docusate sodium 100 mg Capsule PO ×2 (08:06→17:48)
[2021-07-15] MEDS: multivitamin therapeutic Tablet 1 TAB PO (08:06)
[2021-07-15] MEDS: atorvastatin 40 mg Tablet 20 MG PO (08:06)
[2021-07-15] MEDS: folic acid 1 mg Tablet PO (08:06)
[2021-07-15] MEDS: ferrous gluconate 324 mg Tablet PO ×2 (08:06→17:48)
[2021-07-15] MEDS: potassium chloride ER 10 mEq Tablet PO ×3 (08:06→20:45)
[2021-07-15] MEDS: metoprolol tartrate 25 mg Tablet PO ×2 (08:10→20:45)
[2021-07-15 11:37] VITALS: BP 135/93; PULSE 70; RESP 17; TEMP 36.9; O2SAT 98
--- NOTE | 2021-07-15 13:04 | P.PN_ITS ---
Subjective Subjective: Seen this morning. She was recently working with physical therapy. She is quite unsteady on her feet and requires assistance. She also sways to 1 side versus the other at times. She requires assistance. Otherwise she stated she was doing well and is wondering when she will be able to leave [facility]. She does understand is a long weekend and her applications have been faxed over to various places at this time. 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 Vitals/I&O/Wt Last Vital Signs Temp 98.4 F 07/15/21 11:37 Pulse 70 07/15/21 11:37 Resp 17 07/15/21 11:37 BP 135/93 07/15/21 11:37 Pulse Ox 98 07/15/21 11:37 07/14/21 07/15/21 07/15/21 22:59 06:59 14:59 Intake Total 120 / 120 120 / 120 Output Total 550 / 550 600 / 1150 Balance -430 / -430 -600 / -1030 120 / 120 Weight last 48 hrs Weight 61.552 kg Weight 62.823 kg Physical Exam Narrative: General: No acute distress, AO x3.? Small abrasion present at the bridge of the nose, not open wound.? HEENT: Normocephalic atraumatic, EOMI, edentulous Chest: Clear to auscultation bilaterally no wheezes no rhonchi present. CVS: S1-S2 regular, no gross murmurs evident Abdomen: Soft, nontender, bowel sounds present Neuro: Nonfocal, AAOx3 Data : 07/10/21 04:29 07/15/21 02:55 A&P Assessment and plan (1) Unsteady gait when walking: Status: Acute (2) Alcohol withdrawal: Status: Acute (3) Wernicke encephalopathy: Status: Acute (4) Frequent falls: Status: Acute (5) Alcohol abuse: Status: Acute (6) Hyponatremia: Status: Acute (7) Hypokalemia: Status: Acute (8) GERD (gastroesophageal reflux disease): Status: Acute Qualifiers: Esophagitis presence: without esophagitis Qualified Code(s): K21.9 - Gastro-esophageal reflux disease without esophagitis (9) Hyperlipidemia: Status: Acute Qualifiers: Hyperlipidemia type: mixed hyperlipidemia Qualified Code(s): E78.2 - Mixed hyperlipidemia (10) Hypertension: Status: Acute Qualifiers: Hypertension type: essential hypertension Qualified Code(s): I10 - E ssential (primary) hypertension (11) CKD (chronic kidney disease): Status: Acute Qualifiers: Chronic kidney disease stage: stage 2 (mild) Qualified Code(s): N18.2 - Chronic kidney disease, stage 2 (mild) Plan 56-year-old female with past history of chronic alcohol abuse consuming 1 to 1- 1/2 gallon of whiskey every other day for many years presented to the ER because of multiple episodes of vomiting for last 1 week and falls for last 2 days prior to admission.? She does have a history of aortic encephalopathy which was confirmed with MRI.? CT head negative for stroke, ammonia level normal.? Hyponatremic on admission which has resolved at this point.? Most likely component of hypervolemic hyponatremia in setting of chronic alcohol abuse.? During hospitalization patient went into alcohol withdrawal which was managed medically prevent Precedex drip.? Currently alcohol withdrawal has resolved.? She is on a tapering dose of Librium.? Physical therapy evaluated the patient and she is extremely unsteady on her gait.? She is pending placement to SNF because of high risk of fall because of unsteady gait. #Wernicke's encephalopathy secondary to alcohol abuse #Hypervolemic hyponatremia?resolved #Alcohol withdrawal #Nausea vomiting secondary to alcohol abuse, history of GERD?resolved #Frequent falls, unsteady gait secondary to alcohol abuse #Hypertension #Hypomagnesemia ? Librium tapered and stopped. ? Pancreatic head mass seen on CT consistent with pancreatic cyst though malignancy cannot be ruled out.? She will need nonemergent follow-up MRI. ? Continue folic acid, thiamine, multivitamin. ? Restart amlodipine and losartan today. Continue metoprolol. ? Pending placement at this point.? -Continue to replete electrolytes as needed. Full code. Protonix for PUD prophylaxis. Lovenox for DVT prophylaxis. Mechanical soft regular diet. Patient would like her daughter Lizet to make medical decisions for her in case she is not able to make her medical decisions herself. Attestations Medical Necessity Statement*: Pending bed placement. Coding Level of Care Code Acute Manager Perioperative for Chg Fwd Diagnoses Unsteady gait when walking R26.81 Alcohol withdrawal F10.239 Wernicke encephalopathy E51.2 Frequent falls R29.6 Alcohol abuse F10.10 Hyponatremia E87.1 Hypokalemia E87.6 GERD (gastroesophageal reflux disease) K21.9 Esophagitis presence: without esophagitis Hyperlipidemia E78.2 Hyperlipidemia type: mixed hyperlipidemia Hypertension I10 Hypertension type: essential hypertension CKD (chronic kidney disease) N18.2 Chronic kidney disease stage: stage 2 (mild)
--- NOTE | 2021-07-15 13:23 | PC.SOCIAL ---
IMM UPDATED IMM dated and initialed, copy given to patient
[2021-07-15 15:59] VITALS: BP 138/90; PULSE 76; RESP 17; TEMP 37.2; O2SAT 98
[2021-07-15] MEDS: pantoprazole DR 40 mg Tablet PO (17:48)
[2021-07-15] MEDS: enoxaparin 40 mg/0.4 mL Syringe SUBCUT (17:48)
[2021-07-15 20:00] VITALS: BP 178/89; PULSE 83; RESP 17; TEMP 37.1; O2SAT 97
[2021-07-15] MEDS: risperiDONE 2 mg Tablet PO (21:00)
[2021-07-16] VITALS: BP 121/77; PULSE 66; RESP 16; TEMP 36.6; O2SAT 95
[2021-07-16] MEDS: acetaminophen 325 mg Tablet 650 MG PO ×3 (01:00→20:18)
[2021-07-16 03:44] LABS: Anion Gap 13.6 (5-19); Blood Urea Nitrogen 15 mg/dL (8-23); Calcium 10.2 mg/dL (8.5-10.5); Carbon Dioxide 22 mmol/L (22-29); Chloride 101 mmol/L (98-107); Glucose 199 mg/dL (65-115); Osmolality Calculated 282 mOsm/kg (285-295); Potassium 3.6 mmol/L (3.5-5.1); Sodium 133 mmol/L (136-145)
[2021-07-16 08:00] VITALS: BP 161/98; PULSE 67; RESP 14; TEMP 36.4; O2SAT 98
[2021-07-16] MEDS: potassium chloride ER 10 mEq Tablet PO ×3 (08:44→20:18)
[2021-07-16] MEDS: losartan 50 mg Tablet PO (08:44)
[2021-07-16] MEDS: ferrous gluconate 324 mg Tablet PO ×2 (08:44→17:21)
[2021-07-16] MEDS: amlodipine 10 mg Tablet PO (08:44)
[2021-07-16] MEDS: thiamine 100 mg Tablet PO (08:44)
[2021-07-16] MEDS: fenofibrate 145 mg Tablet PO (08:44)
[2021-07-16] MEDS: folic acid 1 mg Tablet PO (08:44)
[2021-07-16] MEDS: atorvastatin 40 mg Tablet 20 MG PO (08:44)
[2021-07-16] MEDS: docusate sodium 100 mg Capsule PO ×2 (08:44→17:21)
[2021-07-16] MEDS: multivitamin therapeutic Tablet 1 TAB PO (08:44)
[2021-07-16] MEDS: metoprolol tartrate 25 mg Tablet PO ×2 (08:47→20:18)
--- NOTE | 2021-07-16 09:59 | PC.CHAP ---
Pastoral Care Encounter/Spiritual Assessment Type of Contact [] Declined single stayer operator visit [] Patient/Family/Request visit [] Outpatient visit [] Follow-up visit [] Physician referral [] Code/Alert [x] Routine visit [] Staff referral [] Actively dying [] Patient sleeping [] Family support [] [] Out of room [] Palliative care [] [] Receiving care in room [] Pre-surgical visit [] Trauma [] Long length of stay [] ICU visit [] Other: Relational/Emotional Strength [] Patient feels connected with others/family/visitors/staff [] Distress [] Loneliness/isolation [] Abandonment Spirituality of Patient x[] Person of [place] [] Attends Latter Day of their [place] [x] Believes in Prayer [] Reads Bible or Faith materials [] There are Spiritual issues to be addressed Computer Networker Interventions x [xx] Prayer [] Active listening [] Non-anxious presence [] Spiritual/emotional support [] Crisis/trauma care [] Spiritual counseling [] Bereavement support [] Provided bereavement packet [] Provided Bible/devotional materials [] Provided toy/stuffed animal, coloring book to patient or family member [] Provided Communion [] Anointing/[place] [] Salvation []x Completed spiritual assessment [] Other: Impact on Illness or Injury [] Angry [] Fearful [] Anxious [] Often cries [] Exhaustion [] Unable to work [] Unable to attend congregational [] Unable to walk/stand [] Unable to read [] Unable to drive [] Unable to eat/drink [] Unable to sleep [] Unable to be with family [] Patient intubated [] Other: Summary Time spent with patient 10 min
--- NOTE | 2021-07-16 10:53 | P.PN_ITS ---
Subjective Subjective: No overnight events, had detailed discussion with her daughter I did ask her to go for legal route for the documentation of DPOA Patient does confabulate sometimes as per the daughter Vitals/I&O/Wt Last Vital Signs Temp 97.5 F L 07/16/21 08:00 Pulse 67 07/16/21 08:00 Resp 14 07/16/21 08:00 BP 161/98 07/16/21 08:00 Pulse Ox 98 07/16/21 08:00 07/15/21 07/16/21 07/16/21 22:59 06:59 14:59 Intake Total 560 / 680 100 / 780 120 / 120 Output Total 551 / 551 Balance 9 / 129 100 / 229 120 / 120 Weight last 48 hrs Weight 63.276 kg Weight 61.552 kg Physical Exam Narrative: Patient is laying flat in the bed Awake and alert No signs of stroke Pleasant during my evaluation S1, S2 Abdomen soft Saturating well on room air Nonfocal neuro exam No signs of cellulitis I did not test her gait Data : 07/10/21 04:29 07/16/21 02:48 A&P Assessment and plan (1) Unsteady gait when walking: Status: Acute (2) Alcohol withdrawal: Status: Acute (3) Wernicke encephalopathy: Status: Acute (4) Frequent falls: Status: Acute (5) Alcohol abuse: Status: Acute Plan Warnicke encephalopathy Alcohol abuse No acute events Doing well on Librium tapering dose No significant electrolyte imbalance Awaiting placement Did talk with her family Lovenox for DVT prophylaxis Continue Protonix Outpatient pancreatic MRI Continue thiamine and folic acid Continue losartan and amlodipine along metoprolol for hypertensive urgency Patient is full code On modified diet Had detailed discussion with her daughter today Attestations Medical Necessity Statement*: Anticipating discharge in next 48 hours Time Spent in Patient Care: 30mins Coding Level of Care Code Acute Corporate Representative for Chg Fwd Diagnoses Unsteady gait when walking R26.81 Alcohol withdrawal F10.239 Wernicke encephalopathy E51.2 Frequent falls R29.6 Alcohol abuse F10.10
[2021-07-16 12:00] VITALS: BP 104/68; PULSE 62; RESP 13; TEMP 36.7; O2SAT 96
[2021-07-16 16:00] VITALS: BP 116/78; PULSE 73; RESP 16; TEMP 37; O2SAT 98
[2021-07-16] MEDS: enoxaparin 40 mg/0.4 mL Syringe SUBCUT (17:21)
[2021-07-16] MEDS: pantoprazole DR 40 mg Tablet PO (17:21)
[2021-07-16 20:00] VITALS: BP 141/84; PULSE 81; RESP 17; TEMP 36.6; O2SAT 97
[2021-07-16] MEDS: risperiDONE 2 mg Tablet PO (20:18)
[2021-07-17 04:00] VITALS: BP 129/82; PULSE 72; RESP 16; TEMP 36.5; O2SAT 97
[2021-07-17 07:42] VITALS: BP 129/82; PULSE 72; RESP 16; TEMP 36.5; O2SAT 97
[2021-07-17] MEDS: multivitamin therapeutic Tablet 1 TAB PO (08:13)
[2021-07-17] MEDS: thiamine 100 mg Tablet PO (08:13)
[2021-07-17] MEDS: potassium chloride ER 10 mEq Tablet PO ×3 (08:13→20:02)
[2021-07-17] MEDS: losartan 50 mg Tablet PO (08:13)
[2021-07-17] MEDS: folic acid 1 mg Tablet PO (08:13)
[2021-07-17] MEDS: ferrous gluconate 324 mg Tablet PO ×2 (08:13→17:38)
[2021-07-17] MEDS: fenofibrate 145 mg Tablet PO (08:13)
[2021-07-17] MEDS: docusate sodium 100 mg Capsule PO ×2 (08:13→17:38)
[2021-07-17] MEDS: atorvastatin 40 mg Tablet 20 MG PO (08:14)
[2021-07-17] MEDS: amlodipine 10 mg Tablet PO (08:14)
[2021-07-17] MEDS: metoprolol tartrate 25 mg Tablet PO ×2 (08:17→20:02)
[2021-07-17 09:04] VITALS: BP 146/94; PULSE 70; RESP 18; TEMP 36.6; O2SAT 97
--- NOTE | 2021-07-17 11:00 | PC.SOCIAL ---
IMM Updated Updated pt on IMM. No questions voiced. Provided pt a copy. Initialed, dated, & timed copy in chart.
[2021-07-17 11:46] VITALS: BP 114/76; PULSE 62; RESP 12; TEMP 36.4; O2SAT 97
--- NOTE | 2021-07-17 12:53 | P.PN_ITS ---
Subjective Subjective: No overnight events Patient did work with physical therapist today Awaiting placement Continue thiamine and folic acid Vitals/I&O/Wt Last Vital Signs Temp 97.5 F L 07/17/21 11:46 Pulse 62 07/17/21 11:46 Resp 12 07/17/21 11:46 BP 114/76 07/17/21 11:46 Pulse Ox 97 07/17/21 11:46 07/16/21 07/17/21 07/17/21 22:59 06:59 14:59 Intake Total 700 / 1060 480 / 480 Balance 700 / 1060 480 / 480 Weight last 48 hrs Weight 65.045 kg Weight 63.276 kg Physical Exam Narrative: Very pleasant cooperative Gait is much better today Work with physical therapy S1, S2 Abdomen soft saturating well on room air Able to recall and tell me about her home conditions and how she is motivated to sell her home Nonfocal neuro exam Data : 07/10/21 04:29 07/16/21 02:48 A&P Assessment and plan (1) Unsteady gait when walking: Status: Acute (2) Alcohol withdrawal: Status: Acute (3) Wernicke encephalopathy: Status: Acute (4) Frequent falls: Status: Acute Plan Continue thiamine and folic acid No change in medical management She is currently awaiting placement For Warnicke encephalopathy and recurrent falls she will need rehab Blood pressure is better on current regimen Full code Regular diet DVT prophylaxis Lovenox Attestations Medical Necessity Statement*: Awaiting placement Time Spent in Patient Care: 15min Coding Level of Care Code Acute Cleaner And Presser for [facility] Fwd Diagnoses Unsteady gait when walking R26.81 Alcohol withdrawal F10.239 Wernicke encephalopathy E51.2 Frequent falls R29.6
--- NOTE | 2021-07-17 13:46 | PM.DCS ---
Discharge Providers Date of Admission: 07/04/21 13:44 Date of Discharge: July 17, 2021 Attending Provider at Admission: Americo Ireland MD Attending Provider at Discharge: Rohit Chairez MD Primary Care Provider: Evelyne Harper MD Diagnoses at Discharge Discharge Diagnosis (1) Unsteady gait when walking: Status: Acute (2) Alcohol withdrawal: Status: Acute (3) Wernicke encephalopathy: Status: Acute (4) Frequent falls: Status: Acute Reason for Visit Reason for Visit: DIZZINESS/ VOMITING/ ORTHOSTATIC HYPOTENSION Hospital Course Hospital Course 56-year-old female with past history of chronic alcohol abuse consuming 1 to 1-1/2 gallon of whiskey every other day for many years presented to the ER because of multiple episodes of vomiting for last 1 week and falls for last 2 days prior to admission.? She does have a history of aortic encephalopathy which was confirmed with MRI.? CT head negative for stroke, ammonia level normal.? Hyponatremic on admission which has resolved at this point.? Most likely component of hypervolemic hyponatremia in setting of chronic alcohol abuse.? During hospitalization patient went into alcohol withdrawal which was managed medically prevent Precedex drip.? Symptoms of alcohol withdrawal has resolved.? Librium tapered off.? Physical therapy evaluated the patient and she is extremely unsteady on her gait.? She will be discharged to [facility]. I will prescribe her thiamine and folic acid. She does not need benzodiazepine taper or Librium at the time of discharge. Family has been updated on daily basis. Physical Exam Narrative: Very pleasant cooperative Gait is much better today Work with physical therapy S1, S2 Abdomen soft saturating well on room air Able to recall and tell me about her home conditions and how she is motivated to sell her home Nonfocal neuro exam Discharge Data Studies Completed and Pending Completed Studies During Hospitalization Category Date Time Status CT chest abd pel wo con Routine Cat Scan 07/04/21 17:[address] facial bones wo con* [id number] Stat Cat Scan 07/04/21 11:[address] head wo con* [id number] Stat Cat Scan 07/04/21 11:34 Completed XR chest 1V portable [id number] Stat Exams 07/04/21 12:06 Completed MR head wo con* [id number] Routine MRI 07/05/21 09:30 Completed Radiology Impressions Face CT 07/04/21 11:34 IMPRESSION: 1. Soft tissue tissue edema overlying the nasal bones and anterior facial soft tissues. No displaced nasal bone fractures. Slight irregularity distal nasal tip. 2. No orbital fractures. 3. Paranasal sinuses and mastoid air cells are well aerated. Head CT 07/04/21 11:34 IMPRESSION: 1. No evidence of intracranial hemorrhage or mass effect. 2. Moderate small vessel changes. Mild parenchymal volume loss. 3. Chronic encephalomalacia RIGHT parietal lobe. 4. Chronic LEFT frontal mauro hole. 5. No acute intracranial findings. Chest X-Ray 07/04/21 12:06 Impression: 1. Moderate to small right pleural effusion with patchy atelectasis in the right lower lobe. 2. Mild cardiomegaly. Chest/Abdomen/Pelvis CT 07/04/21 17:37 IMPRESSION: 1. Ascending thoracic aorta is prominent at 4.1 cm, negative for rupture. 2. Emphysematous changes. 3. Scattered interstitial fibrotic changes right greater than left. 4. Midthoracic spine chronic benign hemangioma. 5. Several chronic right posterior rib fractures. 6. Benign right pleural plaque overlying the diaphragm. IMPRESSION: 1. Negative for acute inflammatory changes in the abdomen or pelvis. 2. Cholelithiasis. 3. Solid and cystic 3.9 cm pancreatic head mass suspected, MRI of the pancreas advised non emergently. 4. Right hip arthroplasty changes. Head MRI 07/05/21 09:30 IMPRESSION: 1. No evidence of restricted diffusion to suggest acute ischemia. 2. Moderate small vessel changes with moderate parenchymal volume loss. 3. Evidence of chronic infarcts in the RIGHT frontal parietal junction with encephalomalacia and gliosis. 4. Moderate cerebellar atrophy worse involving the superior vermis. Atrophic mammillary bodies with a Small amount of increased T2 hyperintensity. Above findings can be seen with Wernickes and chronic alcoholic encephalopathy. 5. No evidence of acute osmotic demyelination. 6. Moderate to advanced symmetric atrophy temporal lobes and hippocampal formations. Laboratory Results WBC 3.5 10^3/uL (4.0-10.0) L 07/10/21 04:29 Corrected WBC Cancelled 07/04/21 12:05 RBC 3.49 10^6/uL (4.1-5.3) L 07/10/21 04:29 Hgb 11.8 g/dL (11.5-15.3) 07/10/21 04:29 Hct 34.6 % (37.0-47.0) L 07/10/21 04:29 MCV 99.1 fl (81-99) H 07/10/21 04:29 MCH 33.8 pg (28.0-34.0) 07/10/21 04:29 MCHC 34.1 g/dL (30.0-36.0) 07/10/21 04:29 RDW 12.0 % (12.1-15.1) L 07/10/21 04:29 Plt Count 196 10^3/cmm (130-400) 07/10/21 04:29 MPV 9.6 fL (7.4-10.4) 07/10/21 04:29 Gran % Cancelled 07/04/21 12:05 Neut % (Auto) 45.9 % 07/10/21 04:29 Lymph % (Auto) 25.9 % 07/10/21 04:29 Price % (Auto) 23.4 % 07/10/21 04:29 Eos % (Auto) 2.8 % 07/10/21 04:29 Baso % (Auto) 0.9 % 07/10/21 04:29 Neut # (Auto) 1.61 10^3/uL (1.8-7.7) L 07/10/21 04:29 Lymph # (Auto) 0.9 10^3/uL (0.8-4.8) 07/10/21 04:29 Price # (Auto) 0.8 10^3/uL (0.2-0.9) 07/10/21 04:29 Eos # (Auto) 0.1 10^3/uL (0.0-0.8) 07/10/21 04:29 Baso # (Auto) 0.0 10^3/uL (0.0-0.1) 07/10/21 04:29 Absolute Gran (auto) Cancelled 07/04/21 12:05 Nucleated RBC % (auto) 0 % 07/10/21 04:29 Nucleated RBCs # 0.0 /100WBC 07/10/21 04:29 Specimen Type Arterial 07/04/21 12:17 Sample Site Radial, left 07/04/21 12:17 ABG pH 7.48 (7.35-7.45) H 07/04/21 12:17 ABG pCO2 34.7 mmHg (35-45) L 07/04/21 12:17 ABG pO2 75.3 mmHg (80.0-100.0) L 07/04/21 12:17 ABG HCO3 26.1 mmol/L (22-26) H 07/04/21 12:17 ABG O2 Saturation 94.8 07/04/21 12:17 ABG Base Excess 2.9 mmol/L (-2.0-2.0) H 07/04/21 12:17 Cory Test Pos 07/04/21 12:17 A-a O2 Gradient 3.9 mmHg (5-10) L 07/04/21 12:17 Hematocrit 39.1 % (37-47) 07/04/21 12:17 Hgb O2 Saturation 93.6 % (95-100) L 07/04/21 12:17 Carboxyhemoglobin 0.5 %THgb (0.4-20.1) 07/04/21 12:17 Methemoglobin 0.8 % (0.4-1.5) 07/04/21 12:17 Total Hemoglobin 12.8 g/dL (12-16) 07/04/21 12:17 Sodium 126.0 mmol/L (131-143) L 07/04/21 12:17 Potassium 3.1 mmol/L (3.5-5.0) L 07/04/21 12:17 Glucose 102.0 mg/dL (70-115) 07/04/21 12:17 Ionized Calcium 1.2 mmol/L (1.1-1.4) 07/04/21 12:17 O2 Delivery Device Room air 07/04/21 12:17 FiO2 21.0 % 07/04/21 12:17 Associate Brand Manager ID Cak 07/04/21 12:17 Sodium 133 mmol/L (136-145) L 07/16/21 02:48 Potassium 3.6 mmol/L (3.5-5.1) 07/16/21 02:48 Chloride 101 mmol/L (98-107) 07/16/21 02:48 Carbon Dioxide 22 mmol/L (22-29) 07/16/21 02:48 Anion Gap 13.6 (5-19) 07/16/21 02:48 BUN 15 mg/dL (8-23) 07/16/21 02:48 Creatinine 0.9 mg/dL (0.5-0.9) 07/16/21 02:48 GFR Calculation 63.0 mL/min (90-130) L 07/16/21 02:48 Glucose 199 mg/dL (65-115) H 07/16/21 02:48 POC Glucose 128 mg/dL (70-110) H 07/10/21 04:18 Estimat Average Glucose 131 07/05/21 04:21 Hemoglobin A1c 6.2 % (4.0-6.0) H 07/05/21 04:21 Calculated Osmolality 282 mOsm/kg (285-295) L 07/16/21 02:48 Calcium 10.2 mg/dL (8.5-10.5) 07/16/21 02:48 Magnesium 1.5 mg/dL (1.7-2.3) L 07/15/21 02:55 Iron 79 ug/dL (37-145) 07/04/21 12:05 TIBC 272 mcg/dl 07/04/21 12:05 % Saturation 29.0 % (20-50) 07/04/21 12:05 Unsat Iron Binding 193 ug/dL (112-347) 07/04/21 12:05 Total Bilirubin 0.6 mg/dL (0.15-1.2) 07/10/21 04:29 AST 26 U/L (0-32) 07/10/21 04:29 ALT 29 U/L (0-33) 07/10/21 04:29 Alkaline Phosphatase 47 IU/L (35-105) 07/10/21 04:29 Ammonia 10 umol/L (11-51) L 07/04/21 12:50 Troponin T Baseline 43 ng/L (0-10) H 07/04/21 12:05 Troponin T 120 Minute 42.70 ng/L (0-10) H 07/04/21 13:50 Delta Troponin T -0.30 ABS# (0-10) L 07/04/21 13:50 Troponin T Hi Sens 6Hr 48.96 ng/L (0-10) H 07/04/21 19:28 Troponin T Hi Sens 6Hr Delta 5.96 ng/L (0-12) 07/04/21 19:28 NT-Pro-B Natriuret Pep 2838 pg/mL (0-125) H 07/04/21 12:05 Total Protein 6.0 g/dL (6.6-8.7) L 07/10/21 04:29 Albumin 3.8 g/dL (3.5-5.2) 07/10/21 04:29 Globulin 2.2 g/dL (1.3-4.6) 07/10/21 04:29 Triglycerides 102 mg/dL (0-150) 07/05/21 04:21 Cholesterol 133 mg/dL (0-200) 07/05/21 04:21 LDL Cholesterol, Calc 38 mg/dL (50-129) L 07/05/21 04:21 Total VLDL Cholesterol 20 mg/dL (0-30) 07/05/21 04:21 HDL Cholesterol 75 mg/dL (60-100) 07/05/21 04:21 Cholesterol/HDL Ratio 1.77 mg/dL (0.0-4.40) 07/05/21 04:21 Lipase 15 U/L (13-60) 07/04/21 12:05 Vitamin B12 1241 pg/mL (232-1245) 07/04/21 12:05 Folate 11.7 ng/mL (4.8-37.3) 07/04/21 12:05 Urine Color Yellow (Yellow) 07/04/21 13:45 Urine Appearance Clear (CLEAR) 07/04/21 13:45 Urine pH 7 (5-7) 07/04/21 13:45 Ur Specific [place] 1.005 (1.005-1.030) 07/04/21 13:45 Urine Protein Neg (Negative) 07/04/21 13:45 Urine Glucose (UA) Norm (Normal) 07/04/21 13:45 Urine Ketones 1+ (Negative) H 07/04/21 13:45 Urine Blood Neg (Negative) 07/04/21 13:45 Urine Nitrate Negative (Negative) 07/04/21 13:45 Urine Bilirubin Neg (Negative) 07/04/21 13:45 Urine Urobilinogen Norm mg/dL (Negative) 07/04/21 13:45 Ur Leukocyte Esterase Negative (Negative) 07/04/21 13:45 Ur Random Sodium < 10 mmol/L 07/04/21 13:45 Ur Random Potassium 17 mmol/L 07/04/21 13:45 Ur Random Chloride 12 mmol/L 07/04/21 13:45 Salicylates < 0.3 mg/dL (3-10) L 07/04/21 12:05 Urine Opiates Screen Negative ng/mL (Negative) 07/04/21 13:45 Acetaminophen < 5.0 ug/mL (10-30) L 07/04/21 12:05 Ur Barbiturates Screen Negative ng/mL (Negative) 07/04/21 13:45 Ur Phencyclidine Scrn Negative ng/mL (Negative) 07/04/21 13:45 Ur Amphetamines Screen Negative ng/mL (Negative) 07/04/21 13:45 U Benzodiazepines Scrn Negative ng/mL (Negative) 07/04/21 13:45 Urine Cocaine Screen Negative ng/mL (Negative) 07/04/21 13:45 U Marijuana (THC) Screen Negative ng/mL (Negative) 07/04/21 13:45 Ethyl Alcohol 161 mg/dL (0-10) H 07/04/21 12:05 Vitals Last Vital Signs Temp 97.5 F L 07/17/21 11:46 Pulse 62 07/17/21 11:46 Resp 12 07/17/21 11:46 BP 114/76 07/17/21 11:46 Pulse Ox 97 07/17/21 11:46 Discharge Plan Discharge Patient Disposition: Xfer SNF Condition: Stable Prescriptions: New folic acid 1 mg tablet 1 mg PO DAILY Qty: 90 0RF thiamine HCl (vitamin B1) 100 mg tablet 100 mg PO DAILY Qty: 90 0RF Continued lovastatin 10 mg tablet 10 mg PO DAILY 90 Days Qty: 90 2RF naproxen 500 mg tablet 500 mg PO DAILY PRN (Reason: severe pain) 30 Days Qty: 30 5RF Rx Instructions: 340B ondansetron 4 mg tablet,disintegrating 4 mg PO Q6H PRN (Reason: nausea and vomiting) Qty: 12 0RF Rx Instructions: 340b please omeprazole 20 mg capsule,delayed release(DR/EC) 20 mg PO DAILY 90 Days Qty: 90 0RF Ventolin HFA 90 mcg/actuation HFA aerosol inhaler 2 puff INHALATION Q6H PRN (Reason: Shortness Of Breath) 0RF fenofibrate nanocrystallized 145 mg tablet 145 mg PO DAILY 0RF potassium chloride 10 mEq capsule, extended release 10 meq PO TID 0RF risperidone 2 mg tablet 2 mg PO BEDTIME 0RF amlodipine 10 mg tablet 10 mg PO QAM 0RF fluvoxamine 100 mg tablet 100 mg PO BEDTIME 0RF hydrochlorothiazide 25 mg tablet 25 mg PO QAM 0RF olmesartan 40 mg tablet 40 mg PO BEDTIME 0RF Discharge Orders: Discharge Order (Routine); Ordered 07/17/21 Ordered By: Rohit Chairez Referrals: [facility] [Other] (Call this number to get In Home Services setup. They will ask you questions & based off your answers, you are given points. You have to have a certain number of points to qualify for services. ) Evelyne Harper MD [Primary Care Provider] - 2 weeks Discharge Diet: Regular Discharge Activity: Increase activity as tolerated and As per PT/OT instructions Discharge Attestations Time Spent in Discharge Care*: less than 30 min Quality Metrics Clinical Quality Measures [ No reported AMI, CVA or VTE this stay] Coding Level of Care Code Acute Chg FW DC note Diagnoses Unsteady gait when walking R26.81 Alcohol withdrawal F10.239 Wernicke encephalopathy E51.2 Frequent falls R29.6
[2021-07-17 14:58] LABS: SARS Covid-2 Antigen Negative (Negative)
[2021-07-17 15:51] VITALS: BP 145/93; PULSE 78; RESP 18; TEMP 36.7; O2SAT 98
--- NOTE | 2021-07-17 17:26 | PC.NURSE ---
Patient report called to [facility] in [place].
[2021-07-17] MEDS: pantoprazole DR 40 mg Tablet PO (17:38)
[2021-07-17] MEDS: enoxaparin 40 mg/0.4 mL Syringe SUBCUT (17:38)
--- NOTE | 2021-07-17 19:06 | PC.NURSE ---
[facility] NOTIFIED THAT [facility] FAILED TO SET UP PATIENT TRANSPORTATION AND PATIENT DOES NOT HAVE A RIDE. PATIENT WILL BE STAYING ANOTHER NIGHT. CASE MANAGEMENT NOTIFIED.
[2021-07-17 19:17] VITALS: BP 121/79; PULSE 78; RESP 18; TEMP 36.6; O2SAT 78
[2021-07-17] MEDS: acetaminophen 325 mg Tablet 650 MG PO (20:02)
[2021-07-17] MEDS: risperiDONE 2 mg Tablet PO (20:02)
[2021-07-18] VITALS: BP 142/91; PULSE 68; RESP 18; TEMP 36.4; O2SAT 95
[2021-07-18 07:26] VITALS: BP 127/86; PULSE 90; RESP 18; TEMP 36.6; O2SAT 96
[2021-07-18] MEDS: ferrous gluconate 324 mg Tablet PO (08:32)
[2021-07-18] MEDS: folic acid 1 mg Tablet PO (08:33)
[2021-07-18] MEDS: losartan 50 mg Tablet PO (08:33)
[2021-07-18] MEDS: atorvastatin 40 mg Tablet 20 MG PO (08:33)
[2021-07-18] MEDS: fenofibrate 145 mg Tablet PO (08:33)
[2021-07-18] MEDS: docusate sodium 100 mg Capsule PO (08:33)
[2021-07-18] MEDS: amlodipine 10 mg Tablet PO (08:33)
[2021-07-18] MEDS: potassium chloride ER 10 mEq Tablet PO (08:34)
[2021-07-18] MEDS: thiamine 100 mg Tablet PO (08:34)
[2021-07-18] MEDS: multivitamin therapeutic Tablet 1 TAB PO (08:34)
[2021-07-18] MEDS: metoprolol tartrate 25 mg Tablet PO (08:34)
[2021-07-18 11:30] VITALS: BP 127/78; PULSE 79; RESP 18; TEMP 36.3; O2SAT 96
== END 2021-07-18 13:15 | disposition skilled nursing facility (03) | DRG 641 ==
LOC: ER 11:41 → MEDSURG 14:58 → CSU 07-05 17:46 → ICU 07-06 12:12 → MEDSURG 07-07 01:05
PROVIDERS: Internal Medicine; Admitting Provider Student in an Organized Health Care Education/Training Program; Emergency Provider Family Medicine; PCP Family Medicine; Visit Provider Internal Medicine
DX: E51.2 Wernicke's encephalopathy (principal); F10.239 Alcohol dependence with withdrawal, unspecified; E87.1 Hypo-osmolality and hyponatremia; F33.1 Major depressive disorder, recurrent, moderate; K86.2 Cyst of pancreas; F10.229 Alcohol dependence with intoxication, unspecified; G31.2 Degeneration of nervous system due to alcohol; Y90.9 Presence of alcohol in blood, level not specified; E87.6 Hypokalemia; I95.1 Orthostatic hypotension; R29.6 Repeated falls; F43.12 Post-traumatic stress disorder, chronic; N18.2 Chronic kidney disease, stage 2 (mild); I12.9 Hypertensive chronic kidney disease with stage 1 through stage 4 chronic kidney disease, or unspecified chronic kidney disease; K21.9 Gastro-esophageal reflux disease without esophagitis; E78.2 Mixed hyperlipidemia; M19.90 Unspecified osteoarthritis, unspecified site; Z87.891 Personal history of nicotine dependence; R73.03 Prediabetes; R00.1 Bradycardia, unspecified; E83.42 Hypomagnesemia
CPT/HCPCS: 36415; 36416; 36600; 70450; 70486; 70551; 71045; 71250; 74176; 80048; 80051; 80053; 80061; 80306; 80307; 81003; 82140; 82330; 82436; 82607; 82746; 82805; 82962; 83036; 83540; 83550; 83690; 83735; 83880; 84133; 84300; 84484; 85025; 87426; 87449; 87493; 87506; 93005; 96372; 97116; 97161; 97530; 99285; C9113; J0360; J1630; J1650; J1940; J2060; J2405; J2543; J3411; J3475; J3490; J7030; J7040; J7799